=== PATIENT | female | born 1975 | race Caucasian/White ===

== ENCOUNTER 2017-03-14 23:50 | Inpatient (IN) | payer MEDICAID ==
[~2017-03-14] VITALS: Ht 142.2 cm; Wt 95.3 kg
[~2017-03-14 23:50] MED LIST: METH250T11 PO; PREN1CAP6 PO
[2017-03-14 23:58] VITALS: BP 156/59
[2017-03-15] MEDS ORDERED: NACL 0.9% 500 ML IV ONE (00:04)
[2017-03-15] MEDS ORDERED: KETOROLAC 30 MG/ML VIAL IVP ONE (00:05)
[2017-03-15] MEDS ORDERED: ONDANSETRON 4 MG/2 ML VIAL IVP ONE (00:05)
[2017-03-15 00:43] LABS: BASOPHILS # (AUTO) 0.1 K/uL (0.00-0.22); EOSINOPHILS # (AUTO) 0.2 K/uL (0-0.4); MONOCYTES # (AUTO) 0.3 K/uL (0.8-1.0)
[2017-03-15 01:04] LABS: BASOPHILS % (AUTO) 0.8 % (0.0-2.0); EOSINOPHILS % (AUTO) 3.1 % (0.0-4.0); LYMPHOCYTES # (AUTO) 1.6 K/uL (2.5-16.5); LYMPHOCYTES % (AUTO) 24.2 % (20.5-51.1); MEAN CORPUSCULAR HEMOGLOBIN 18 pg (27-31); MEAN CORPUSCULAR HGB CONC 30 g/dL (33-37); MEAN CORPUSCULAR VOLUME 60 fL (80-94); MONOCYTES % (AUTO) 4.6 % (1.7-9.3); NEUTROPHILS # (AUTO) 4.2 K/uL (1.8-7.7); NEUTROPHILS % (AUTO) 67.3 % (42.2-75.2); PLATELET COUNT (AUTO) 257 K/uL (140-450); RED BLOOD CELL COUNT(AUTO) 3.98 MIL/uL (4.20-5.40); RED CELL DISTRIBUTION WIDTH 20.5 % (11.6-13.7); WHITE BLOOD COUNT (AUTO) 6.4 K/uL (4.8-10.8)
--- NOTE | 2017-03-15 01:07 | NUR ---
PATIENT TAKEN TO BED 5 AT THIS TIME.
--- NOTE | 2017-03-15 01:13 | NUR ---
41 Y/O F W/C/O RT UPPER QUADRANT PAIN, RADIATING TO HER BACK, WITH VOMITING FOR 2 DAYS.
--- NOTE | 2017-03-15 01:15 | NUR ---
PT TRASFERED TO BED 5. NO S/S OF DISTRESS NOTED AT THE MOMENT. CURRENTLY RECEIVING IV FLUIDS.
[2017-03-15 01:17] LABS: ALBUMIN 3.7 g/dL (3.4-5.0); ANION GAP 13.4 (8-16); CALCIUM 8.5 mg/dL (8.5-10.1); CARBON DIOXIDE 25.2 mmol/L (21-32); CREATININE 0.5 mg/dL (0.6-1.3); POTASSIUM 3.6 mmol/L (3.5-5.1); TOTAL BILIRUBIN 1.5 mg/dL (0.0-1.0); TOTAL PROTEIN, SERUM 7.7 g/dL (6.4-8.2)
[2017-03-15 01:21] LABS: HEMATOCRIT 23.8 % (36-48)
[2017-03-15 01:22] LABS: ANISOCYTOSIS 1+; HYPOCHROMASIA 1+
--- NOTE | 2017-03-15 02:18 | NUR ---
DR. TARANGO AT BEDSIDE
[2017-03-15] MEDS ORDERED: NACL 0.9% 1,000 ML IV SCH (02:22)
[2017-03-15] MEDS ORDERED: MORPHINE SULFATE 2 MG/ML SYR IVP PRN (02:25)
[2017-03-15] MEDS ORDERED: DOCUSATE SODIUM 100 MG GELCAP PO PRN (02:25)
[2017-03-15] MEDS ORDERED: ACETAMINOPHEN 325 MG TAB PO PRN (02:25)
[2017-03-15] MEDS ORDERED: ONDANSETRON 4 MG/2 ML VIAL IM/IVP PRN (02:25)
[2017-03-15 02:50] LABS: PARTIAL THROMBOPLASTIN TIME 24.5 secs (22-35.6); PROTHROMBIN TIME 10.5 secs (10.8-13.4)
--- NOTE | 2017-03-15 02:50 | NUR ---
Patient will be admitted to care of DR SCOTT. Admited to TELEMETRY. Will go to room 120 A. Belongings list completed. Report to AMAYA UMANZOR.
[2017-03-15 02:57] LABS: APPEARANCE,URINE CLEAR (CLEAR); BILIRUBIN,URINE 2+ (NEGATIVE); BLOOD, URINE NEGATIVE (NEGATIVE); COLOR,URINE YELLOW (YELLOW); LEUKOCYTE ESTERASE ,URINE NEGATIVE (NEGATIVE); NITRITE, URINE NEGATIVE (NEGATIVE); PROTEIN,URINE NEGATIVE (NEGATIVE); UGLUCOSE NEGATIVE (NEGATIVE)
[2017-03-15 03:00] LABS: CHOL/HDL RATIO 10.5 (1-4.5); FREE T4 (FREE THYROXINE) 0.96 ng/dL (0.76-1.46); MAGNESIUM 1.9 mg/dL (1.8-2.4); PHOSPHORUS 3.5 mg/dL (2.5-4.9); THYROID STIMULATING HORMONE 1.22 uIU/mL (0.34-3.74)
--- NOTE | 2017-03-15 03:00 | NUR ---
PT TRASFERED TO FLOOR VIA GURNEY, OPTOELECTRONICS ENGINEER IN BED. ACCOMPANIED BY RN, EMT AND DAUGHTER. NO S/S OF DITRESS NOTED DURING TRANSFER.
[2017-03-15] MEDS ORDERED: HYDROmorphone 1 MG/ML AMP IVP PRN ×2 (03:05→09:00)
[2017-03-15] MEDS ORDERED: KETOROLAC 15 MG/ML VIAL IVP PRN (03:05)
--- NOTE | 2017-03-15 03:30 | NUR ---
RECEIVED FROM ER PER NICK AWAKE AND ALERT. WALKED FROM DOOR OF ROOM TO BED. ABLE TO AMBULATE. ROM X 4. CLEAR SPEECH LATVIAN SPEAKING. DX. OF CHOLECYSTITIS AND SEVERE ANEMIA. HGB 7 AND HCT 23.8- TELEMETRY MONITORING ON THE FLOOR. CARE PLANS DISCUSSED WITH HER AND CALL LIGHT USE EXPLAINED. RAPID RESPONSE EXPLAINED. WITH BILATERAL SEQUENTIALS EXPLAINED . EXPLAINED NEEDS OF IT. SKIN INTACT. OBESE FEMALE. IVF SITE LAC#20. AFEBRILE.
[2017-03-15 04:00] VITALS: BP 136/63
--- NOTE | 2017-03-15 04:10 | NUR ---
[facility] # [id number] GLASS BEAD MAKER/RAMSES USED TO TALK WITH PT.
[2017-03-15 04:12] LABS: BACTERIA,URINE FEW /HPF (None Seen); ICTOTEST NEGATIVE (NEGATIVE); RBC,URINE 0-5 (RARE) /HPF (0-5); WBC,URINE 0-5 (RARE) /HPF (0-5)
[2017-03-15 04:26] LABS: AMPHETAMINE, URINE NEG. ng/ml (NEG <=1000); BARBITURATE, URINE NEG. ng/ml (NEG <=200); BENZODIAZEPINE, URINE NEG. ng/mL (NEG <=200); CANNABINOID, URINE NEG. ng/mL (NEG <=50); COCAINE, URINE NEG. ng/mL (NEG <=300); OPIATE, URINE NEG. ng/mL (NEG <=2000); PHENCYCLIDINE SCREEN,URINE NEG. ng/mL (NEG <=25)
[2017-03-15] MEDS ORDERED: FERRIC GLUCONATE 62.5 MG/5 ML AMP IV ONE (04:44)
[2017-03-15] MEDS ORDERED: FERRIC GLUCONATE 125 MG in NACL 0.9% 100 ML IV SCH (05:00)
--- NOTE | 2017-03-15 05:01 | NUR ---
FERLICIT 125 MG IVP INFUSING AT THIS TIME ORDERED. ADVISED TO CALL CAREGIVER/NURSE IF SHE FEELS LIKE SHE IS HAVING AN ALLERGY TO IT. "OK" DAUGHTER AT BEDSIDE.
--- NOTE | 2017-03-15 07:00 | NUR ---
MD MARTINEZ /SURGEON CALLED AND WITH ORDERS TO GET CONSENT FOR PROCEDURE. PT. SIGNED AND EXPLAINED TO DAUGHTER AT BEDSIDE WHO SPEAKS AND UNDERSTANDS YORUBA WELL RE: SURGERY . NPO SINCE SHE CAME IN FROM ER AND IVF SITE TO LEFT AC#20 INTACT AND NO INFILTRATION.
--- NOTE | 2017-03-15 07:05 | NUR ---
RECEIVED REPORT FROM NIGHT NURSE, PT IS AAOX4 MONGOLIAN SPEAKING, ON ROOM AIR, IV TO LEFT AC 20G INFUSING WELL, SKIN INTACT, INITIAL ASSESSMENT COMPLETED, REVIEWED PLAN OF CARE WITH P, PT VERBALIZED UNDERSTANDING, ALL SAFETY PRECAUTIONS MET, DAUGHTER AT BEDSIDE, WILL CONTINUE TO MONITOR.
--- NOTE | 2017-03-15 07:45 | NUR ---
PT LEFT UNIT TO OR IN STABLE CONDITIONS.
[2017-03-15 08:00] VITALS: BP 136/65
[2017-03-15] MEDS ORDERED: GLYCOPYRROLATE 0.2 MG/ML VIAL ONE (08:14)
[2017-03-15] MEDS ORDERED: DESFLURANE 240 ML BTL INH ONE (08:14)
[2017-03-15] MEDS ORDERED: PROPOFOL 200 MG/20 ML VIAL IV ONE (08:14)
[2017-03-15] MEDS ORDERED: DEXAMETHASONE 4 MG/ML VIAL ONE (08:14)
[2017-03-15] MEDS ORDERED: PHENYLEPHRINE 10 MG/ML VIAL ONE (08:14)
[2017-03-15] MEDS ORDERED: ROCURONIUM 50 MG/5 ML VIAL IV ONE (08:14)
[2017-03-15] MEDS ORDERED: ONDANSETRON 4 MG/2 ML VIAL ONE (08:14)
[2017-03-15] MEDS ORDERED: BUPIVACAINE-MPF/EPI 0.25% 10 ML VIAL INJ SCH (08:20)
[2017-03-15] MEDS ORDERED: HYDROmorphone PFS 2 MG/ML SYR ONE (08:25)
[2017-03-15] MEDS ORDERED: fentaNYL 0.05 MG/ML VIAL ONE (08:25)
[2017-03-15] MEDS: ATORVASTATIN 20 MG TAB PO SCH (09:00)
[2017-03-15] MEDS ORDERED: METHYLDOPA 250 MG TAB PO SCH (09:00)
[2017-03-15] MEDS ORDERED: PRENATAL VITAMINS PO SCH (09:00)
[2017-03-15] MEDS ORDERED: ONDANSETRON 4 MG/2 ML VIAL IVP PRN (09:00)
[2017-03-15] MEDS: LISINOPRIL 10 MG TAB PO SCH (09:00)
--- NOTE | 2017-03-15 09:05 | NUR ---
PATIENT HAS BEEN SCREENED AND CATEGORIZED HIGH NUTRITION RISK. PATIENT WILL BE SEEN WITHIN 1-2 DAYS OF ADMISSION. 03/15/17-03/16/[address]
--- NOTE | 2017-03-15 10:15 | NUR ---
PATIENT OUT OF ROOM REMAINS IN SURGERY MACHINE GUN MECHANIC TO ATTEMPT INCENTIVE SPIROMETRY THERAPY AND EKG AT A LATER TIME
[2017-03-15] MEDS ORDERED: SIMETHICONE 40 MG/0.6 ML PO PRN ×2 (10:20→10:40)
[2017-03-15] MEDS: DEXT 5% / NACL 0.45% 1,000 ML IV SCH ×3 (10:50→23:26)
--- NOTE | 2017-03-15 10:50 | NUR ---
PT RETURNED TO UNIT FROM OR, VS 97.6, BP 111/58, HR 65, PULSE OX 100 ON ROOM AIR. 3 ABDOMINAL INCISIONS SYMONE, ALL NEEDS MET, WILL CONTINUE TO MONITOR.
[2017-03-15 12:00] VITALS: BP 109/62
--- NOTE | 2017-03-15 12:05 | NUR ---
03/15/17 RD INITIAL ASSESSMENT COMPLETED PLEASE REFER TO NUTRITION ASSESSMENT UNDER CARE ACTIVITY FOR ESTIMATED NUTRITIONAL NEEDS. 1. WHEN MEDICALLY FEASIBLE, INITIATE PO DIET - TO START ON CLEAR LIQUID DIET AND ADVANCE TOLERATED TO REGULAR DIET 2. RD TO FOLLOW-UP 2-3 DAYS; HIGH RISK ALEX BAHENA, EVA
--- NOTE | 2017-03-15 12:15 | NUR ---
AWAKE AND ALERT NO SOB NOTED PATIENT WITH LUNCH TRAY AT THIS TIME ADMINISTRATIVE ANALYST TO ATTEMPT INCENTIVE SPIROMETRY THERAPY AT A LATER TIME FAMILY AT BEDSIDE AIDING PATIENT WITH MEAL
[2017-03-15] MEDS: HYDROcodone/APAP 7.5/325 MG 1 TAB PO PRN ×3 (12:39→23:39)
--- NOTE | 2017-03-15 12:40 | NUR ---
DUE MEDICATION GIVEN, PT TOLERATED WELL, PT C/O PAIN 5/10 MEDICATED PER MD ORDERS, PT CURRENTLY EATING LUNCH NO S/S N/V. FAMILY AT BED SIDE WILL CONTINUE TO MONITOR.
--- NOTE | 2017-03-15 14:35 | NUR ---
ASSISTED PT TO RESTROOM. PT URINATED. ASSISTED PT TO WALK AROUND UNIT, PT TOLERATED WELL. BACK TO BED.
--- NOTE | 2017-03-15 15:20 | NUR ---
AWAKE AND ALERT RESPONSIVE TO FINANCE ADMIN VERBAL COMMANDS EDUCATION PROVIDED TO PATIENT WITH ACKNOWLEDGEMENT ON THE INCENTIVE SPIROMETRY (IS) TOLERATED PROCEDURE WELL WITH INCIDENT ENCOURAGED TO USE EVERY TWO HOURS WHILE AWAKE
[2017-03-15 16:00] VITALS: BP 116/52
[2017-03-15] MEDS: SIMETHICONE 80 MG TAB.CHEW PO SCH (16:38)
[2017-03-15] MEDS: ASCORBIC ACID 500 MG TAB PO SCH (16:38)
[2017-03-15] MEDS: FERROUS GLUCONATE 324 MG TAB PO SCH (16:38)
--- NOTE | 2017-03-15 16:38 | NUR ---
DUE MEDICATION GIVEN, PT TOLERATED WELL. FAMILY AT BEDSIDE. WILL CONTINUE TO MONITOR.
--- NOTE | 2017-03-15 17:06 | NUR ---
DUE MEDICATION GIVEN, PT C/O 12/28 ABD PAIN MEDICATED PER MD ORDERS. WILL CONTINUE TO MONITOR.
--- NOTE | 2017-03-15 18:53 | NUR ---
PT CURRENTLY WALKING. NO S/S OF DISTRESS NOTED.
--- NOTE | 2017-03-15 19:30 | NUR ---
RECEIVED REPORT FROM DAY RN AT BEDSIDE, PATIENT IS AAOX4 ON ROOM AIR, NO SOB OR SIGN OF DISTRESS, IV TO LAC PATENT AND INTACT, PT DENIES PAIN AT THIS TIME, PT C/O SWELLING IN THE ABDOMEN, UPON ASSESSMENT, SWELLING NORMAL AROUND INCISION SITE, PT ALSO STATED SHE FEELS LIKE SHE HAS GAS. PT HAS BEEN BURPING. EDUCATED PT ON IMPORTANCE OF AMBULATING TO HELP MOVE THE BOWELS. PT VERBALIZED UNDERSTANDING. NOTED X3 ABDOMINAL INCISIONS WITH DERMABOND, SITES FREE OF REDNESS OR DRAINAGE. DISCUSSED PLAN OF CARE WITH PATIENT, PT VERBALIZED UNDERSTANDING, CALL LIGHT WITHIN REACH. WILL CONTINUE TO MONITOR.
--- NOTE | 2017-03-15 19:35 | NUR ---
ENDORSED PLAN OF CARE TO NIGHT NURSE, PT IN STABLE CONDITION.
[2017-03-15 20:00] VITALS: BP 113/62
--- NOTE | 2017-03-15 21:41 | NUR ---
PT RESTING IN BED, NO SOB OR SIGN OF DISTRESS, CALL LIGHT WITHIN REACH. WILL CONTINUE TO MONITOR.
--- NOTE | 2017-03-15 22:20 | NUR ---
PT AMBULATING BACK AND FORTH DOWN HALLWAY, IN STABLE CONDITION, WILL CONTINUE TO MONITOR.
[2017-03-16] VITALS: BP 124/54
--- NOTE | 2017-03-16 00:05 | NUR ---
VITAL SIGNS STABLE, NO SOB OR SIGN OF DISTRESS, CALL LIGHT WITHIN REACH. WILL CONTINUE TO MONITOR.
--- NOTE | 2017-03-16 02:30 | NUR ---
PT RESTING IN BED, NO SOB OR SIGN OF DISTRESS, CALL LIGHT WITHIN REACH. WILL CONTINUE TO MONITOR
--- NOTE | 2017-03-16 04:30 | NUR ---
PT SLEEPING, NO SOB OR SIGN OF DISTRESS, CALL LIGHT WITHIN REACH. WILL CONTINUE TO MONITOR.
[2017-03-16 06:27] LABS: HEMATOCRIT 21.2 % (36-48)
[2017-03-16 06:32] LABS: BASOPHILS # (AUTO) 0.1 K/uL (0.00-0.22); BASOPHILS % (AUTO) 1.1 % (0.0-2.0); EOSINOPHILS # (AUTO) 0.2 K/uL (0-0.4); EOSINOPHILS % (AUTO) 1.8 % (0.0-4.0); LYMPHOCYTES # (AUTO) 2.2 K/uL (2.5-16.5); MEAN CORPUSCULAR HEMOGLOBIN 17 pg (27-31); MEAN CORPUSCULAR HGB CONC 29 g/dL (33-37); MEAN CORPUSCULAR VOLUME 61 fL (80-94); MONOCYTES # (AUTO) 0.7 K/uL (0.8-1.0); MONOCYTES % (AUTO) 8.8 % (1.7-9.3); NEUTROPHILS # (AUTO) 5.3 K/uL (1.8-7.7); NEUTROPHILS % (AUTO) 62.3 % (42.2-75.2); PLATELET COUNT (AUTO) 249 K/uL (140-450); RED CELL DISTRIBUTION WIDTH 20.5 % (11.6-13.7)
[2017-03-16 06:36] LABS: ANION GAP 10.2 (8-16); CALCIUM 7.8 mg/dL (8.5-10.1); CARBON DIOXIDE 26.1 mmol/L (21-32); CREATININE 0.6 mg/dL (0.6-1.3); POTASSIUM 3.3 mmol/L (3.5-5.1); TOTAL BILIRUBIN 1.4 mg/dL (0.0-1.0); TOTAL PROTEIN, SERUM 6.4 g/dL (6.4-8.2)
[2017-03-16 06:37] LABS: HEMOGLOBIN 6.1 g/dL (12.0-16.0)
[2017-03-16 06:41] LABS: ANISOCYTOSIS 1+; HYPOCHROMASIA 1+; POIKILOCYTOSIS 1+
[2017-03-16 06:42] LABS: OVALOCYTES 1+; STOMATOCYTES 1+; WHITE BLOOD COUNT (AUTO) 8.5 K/uL (4.8-10.8)
--- NOTE | 2017-03-16 06:49 | NUR ---
RECEIVED CRITICAL LAB OF HGB 6.1, HCT 21.1, REPORTED TO DR JORDAN.
--- NOTE | 2017-03-16 07:30 | NUR ---
ENDORSED PATIENT TO DAY RN AT BEDSIDE, PATIENT IN STABLE CONDITION
--- NOTE | 2017-03-16 07:31 | NUR ---
RECEIVED CARE FROM ALLA CONDE AT BEDSIDE. PT IS A&OX4 LITHUANIAN-SPEAKING. NIECE AT BEDSIDE. PT HAS IV ON L AC 20 G RUNNING D51/2NS@125ML/HR. PT C/O PAIN WILL MEDICATE. PT STATED SHE IS BURPING WHEN WALKING. NO DISTRESS NOTED. CALL LIGHT WITHIN REACH. WILL CONTINUE TO MONITOR.
[2017-03-16 08:00] VITALS: BP 138/66
[2017-03-16] MEDS: ATORVASTATIN 20 MG TAB PO SCH (08:38)
[2017-03-16] MEDS: LISINOPRIL 10 MG TAB PO SCH (08:39)
[2017-03-16] MEDS: HYDROcodone/APAP 7.5/325 MG 1 TAB PO PRN ×2 (08:39→21:21)
[2017-03-16] MEDS: SIMETHICONE 80 MG TAB.CHEW PO SCH (08:40)
[2017-03-16] MEDS: ASCORBIC ACID 500 MG TAB PO SCH ×3 (08:40→16:59)
[2017-03-16] MEDS ORDERED: SIMETHICONE 80 MG TAB.CHEW PO PRN (08:40)
--- NOTE | 2017-03-16 09:00 | NUR ---
PT TOOK A WALK IN HALLWAY. TOLERATED WELL. WENT BACK TO ROOM. CALL LIGHT WITHIN REACH. WILL CONTINUE TO MONITOR.
[2017-03-16] MEDS: FERROUS GLUCONATE 324 MG TAB PO SCH ×3 (09:24→16:59)
[2017-03-16 10:28] LABS: HEMOGLOBIN A1C 4.7 % (4.8-5.6); T4 (THYROXINE) 9.1 ug/dL (4.5 - 12.0)
--- NOTE | 2017-03-16 11:00 | NUR ---
SPOKE TO DR. ANTONIO REGARDING POTASSIUM LEVEL 3.3. WILL PUT IN ORDER.
--- NOTE | 2017-03-16 13:00 | NUR ---
PT AMBULATED IN HALLWAY. TOLERATED WELL. STILL ONLY BURPING. CALL LIGHT WITHIN REACH. WILL CONTINUE TO MONITOR.
--- NOTE | 2017-03-16 15:30 | NUR ---
PT IS RESTING IN BED. NO DISTRESS NOTED. CALL LIGHT WITHIN REACH. WILL CONTINUE TO MONITOR.
[2017-03-16 16:00] VITALS: BP 111/67
[2017-03-16] MEDS ORDERED: NACL 0.9% 1,000 ML IV SCH (16:35)
--- NOTE | 2017-03-16 17:00 | NUR ---
SPOKE TO DR. ANTONIO REGARDING PT'S BLOATING. DR YUEN PUT IN ORDER.
[2017-03-16] MEDS ORDERED: POTASSIUM CHLORIDE 10 MEQ TABER PO SCH (17:34)
[2017-03-16] MEDS ORDERED: BISACODYL 10 MG SUPP RC SCH (17:55)
[2017-03-16 18:51] LABS: FERRITIN 5 ng/mL (15 - 150)
--- NOTE | 2017-03-16 19:10 | NUR ---
ENDORSED CARE TO RAQUEL RN AT BEDSIDE. PT IN STABLE CONDITION.
--- NOTE | 2017-03-16 19:15 | NUR ---
RECEIVED PT IN STABLE CONDITION FROM AM NURSE. AWAKE,ALERT AND ORIENTED X4. SWEDISH SPEAKING. MED SURG PT. S/P LAP JAZMIN WITH X3 INCISIONS WITH GLUE DRESSING. NO C/O ANY PAIN AT THIS TIME. HAS IVF INFUSING WELL ON THE LT AC . WILL CONTINUE TO MONITOR.
--- NOTE | 2017-03-16 22:00 | NUR ---
AWAKE, ENCOURAGED TOUSE INCENTIVE SPIROMETER . DEMONSTRATED WELL.
[2017-03-17] VITALS: BP 128/58
--- NOTE | 2017-03-17 01:00 | NUR ---
MADE ROUNDS. SLEEPING AT THIS TIME. NO S/S FO ANY DISCOMFORT NOTED.
--- NOTE | 2017-03-17 04:30 | NUR ---
MADE ROUNDS. PT ASLEEP. NO S//S OF ANY DISCOMFORT NOR PAIN NOTED.
--- NOTE | 2017-03-17 05:04 | NUR ---
BLOOD WAS JUST DRAWN THIS AM. THEN PT C/O POST OP PAIN. WILL MEDICATE ORDERED.
[2017-03-17] MEDS: HYDROcodone/APAP 7.5/325 MG 1 TAB PO PRN ×2 (05:06→08:56)
[2017-03-17 06:20] LABS: ANION GAP 12.2 (8-16); CALCIUM 8.2 mg/dL (8.5-10.1); CARBON DIOXIDE 25.1 mmol/L (21-32); CREATININE 0.5 mg/dL (0.6-1.3); POTASSIUM 3.3 mmol/L (3.5-5.1)
[2017-03-17 06:39] LABS: BASOPHILS # (AUTO) 0.1 K/uL (0.00-0.22); MEAN CORPUSCULAR HEMOGLOBIN 18 pg (27-31); MEAN CORPUSCULAR HGB CONC 29 g/dL (33-37); MEAN CORPUSCULAR VOLUME 61 fL (80-94); RED CELL DISTRIBUTION WIDTH 20.5 % (11.6-13.7)
[2017-03-17 06:44] LABS: BASOPHILS % (AUTO) 0.8 % (0.0-2.0); EOSINOPHILS # (AUTO) 0.2 K/uL (0-0.4); HEMATOCRIT 23.5 % (36-48); LYMPHOCYTES # (AUTO) 1.8 K/uL (2.5-16.5); LYMPHOCYTES % (AUTO) 19.9 % (20.5-51.1); MONOCYTES # (AUTO) 0.6 K/uL (0.8-1.0); MONOCYTES % (AUTO) 6.7 % (1.7-9.3); NEUTROPHILS # (AUTO) 6.3 K/uL (1.8-7.7); NEUTROPHILS % (AUTO) 70.6 % (42.2-75.2); PLATELET COUNT (AUTO) 259 K/uL (140-450); RED BLOOD CELL COUNT(AUTO) 3.84 MIL/uL (4.20-5.40)
[2017-03-17 06:50] LABS: HEMOGLOBIN 6.8 g/dL (12.0-16.0)
--- NOTE | 2017-03-17 07:22 | NUR ---
ENDORSED PT IN STABLE CONDITION TO AM NURSE.
--- NOTE | 2017-03-17 07:23 | NUR ---
RECEIVED REPORT FROM THE AUTOMOTIVE TECHNOLOGY INSTRUCTOR NURSE AT BEDSIDE FOR CONTINUITY OF CARE. PT IS AWAKE AND ORIENTED. SPEAKS DANISH WITH VERY LITTLE CITIZEN OF [place]. PT'S NIECE IS HERE AT BEDSIDE. PT IS S/P LAP JAZMIN X2 DAYS. PT IS AMBULATING WELL. AND PASSING GAS. SHE HAD A BM THIS MORNING. NOTED THE 4 INCISIONS ON ABDOMIN, SYMONE. NOTED THE IV ON L AC 20G NS AT 30ML INFUSING. PT V/S WITHIN NORMAL RANGE. PAIN AT 4/10. WOULD LIKE PAIN MEDS WHEN IT IS DUE. WILL CHECK AND BE BACK WITH MORNING MEDS.
[2017-03-17 07:24] LABS: ANISOCYTOSIS 1+; HYPOCHROMASIA 1+; POIKILOCYTOSIS 1+
[2017-03-17 07:25] LABS: OVALOCYTES 1+
[2017-03-17 08:00] VITALS: BP 124/59
[2017-03-17] MEDS: ASCORBIC ACID 500 MG TAB PO SCH ×2 (08:20→12:24)
[2017-03-17] MEDS: LISINOPRIL 10 MG TAB PO SCH (08:20)
[2017-03-17] MEDS: ATORVASTATIN 20 MG TAB PO SCH (08:20)
[2017-03-17] MEDS: FERROUS GLUCONATE 324 MG TAB PO SCH ×2 (08:20→12:24)
--- NOTE | 2017-03-17 08:25 | NUR ---
ADMINISTERED MORNING MEDS. PT TOLERATED WELL. WILL CONTINUE TO MONITOR PT.
[2017-03-17] MEDS ORDERED: POTASSIUM CHLORIDE 10 MEQ TABER PO SCH (09:15)
[2017-03-17] MEDS ORDERED: ACET-1182 PO (11:55)
[2017-03-17] MEDS ORDERED: SIME80CT27 PO (11:55)
[2017-03-17] MEDS ORDERED: ATOR20TA40 PO (11:55)
--- NOTE | 2017-03-17 12:15 | NUR ---
DR. MARTINEZ HERE TO SEE PT. PER , PT IS DOING WELL. HE WILL SEE HER IN 2 WEEKS IN HIS OFFICE. PT TO CALL AND MAKE APPT.
--- NOTE | 2017-03-17 12:25 | NUR ---
ADMINISTERED NOON MEDS. PT TOLERATED WELL. CARMEN AT [facility]. WILL CONTINUE TO MONITOR PT. AWAITING 'S D/C ORDER.
--- NOTE | 2017-03-17 14:30 | NUR ---
WENT OVER DISCHARGE PAPERWORK AND EDUCATION WITH PT AND NIECE. ANSWERED ALL QUESTIONS. PT AND FAMILY VERBALIZED UNDERSTANDING. PT IS AWARE TO DRUG ABUSE SOCIAL WORKER RX, GO TO F/U APPTS. REMOVED IV, CANNULA INTACT. NO BLEEDING NOTED. PT TOLERATED WELL. REMOVED ALL ARM BANDS. TOOK PIC OF ABDOMINAL INCISIONS. PLACED IN CHART. PT TO GET DRESSED AND GATHER HER PERSONAL BELONGINGS AND WILL LET ME KNOW WHEN SHE IS READY TO GO. WILL HAVE WHEELCHAIR AVAILABLE.
--- NOTE | 2017-03-17 14:45 | NUR ---
PT WHEELED OUT IN A WHEELCHAIR BY [place]. NIECE OUT GETTING THE CAR. PT IS IN STABLE CONDITION.
[2017-03-17 20:57] LABS: FOLIC ACID > 20.00 ng/mL (>3.0); TRANSFERRIN 325 mg/dL (200-370)
== END 2017-03-17 14:45 | disposition home or self-care (01) | DRG 263 ==
LOC: MED 23:50 → MTU 03-15 02:20
PROVIDERS: ADMIT Family Medicine; ATTEND Family Medicine
PROC: 0FT44ZZ Resection of Gallbladder, Percutaneous Endoscopic Approach (ICD-10-PCS; principal; 2017-03-15 08:00)
DX: K80.00 Calculus of gallbladder with acute cholecystitis without obstruction (principal); K76.0 Fatty (change of) liver, not elsewhere classified; Z68.42 Body mass index [BMI] 45.0-49.9, adult; I10 Essential (primary) hypertension; E87.5 Hyperkalemia; E78.5 Hyperlipidemia, unspecified; D50.9 Iron deficiency anemia, unspecified; R74.0 Nonspecific elevation of levels of transaminase and lactic acid dehydrogenase [LDH]; E66.01 Morbid (severe) obesity due to excess calories; Z82.5 Family history of asthma and other chronic lower respiratory diseases; Z80.3 Family history of malignant neoplasm of breast; Z82.49 Family history of ischemic heart disease and other diseases of the circulatory system; Z82.3 Family history of stroke
CPT/HCPCS: 36415; 71010; 76705; 80048; 80053; 80305; 81001; 81025; 82607; 82728; 82746; 83036; 83540; 83690; 83735; 83880; 84100; 84436; 84439; 84443; 84479; 85025; 85045; 85610; 85730; 86886; 86900; 86901; 87081; 93005; 96361; 96374; 96375; 99285; C1887; J0694; J1100; J1170; J1885; J2370; J2405; J2704; J2916; J3010; J3490; J7030; J7060; Q0092

== ENCOUNTER 2018-11-16 00:45 | Inpatient (IN) | payer MEDICAID ==
[~2018-11-16] VITALS: Ht 142.2 cm; Wt 101.2 kg
[~2018-11-16 00:45] MED LIST changes: +ACET-1182 PO; +ATOR20TA40 PO; -METH250T11 PO; -PREN1CAP6 PO; +SIME80CT27 PO
--- NOTE | 2018-11-16 00:48 | NUR ---
PT TAKEN TO BED 4
--- NOTE | 2018-11-16 00:50 | NUR ---
BIB DAUGHTER WITH C/O SEVERE ABD PAIN X 1 YEAR, WORSE TODAY. HAS BEEN SEEN HERE ON MULTIPLE OCCASSIONS FOR THE SAME THING AND IS IN THE PROCESS OF TRYING TO GET SEEN BY A GI SPECIALIST. STATES THE PAIN IS ALL OVER HER ABD AND RADIATES TO HER BACK. DENIES VOMITING OR DIARRHEA. DENIES FEVER, COUGH, SOB, OR CP AT THIS TIME. DAUGHTER AT BEDSIDE. BED IN LOW LOCK POSITION.
[2018-11-16 00:51] VITALS: BP 117/70
--- NOTE | 2018-11-16 00:52 | NUR ---
Dr. Hammond evaluating patient at bedside.
[2018-11-16] MEDS ORDERED: NACL 0.9% 500 ML IV ONE (00:59)
[2018-11-16] MEDS ORDERED: KETOROLAC 30 MG/ML VIAL IVP ONE (01:00)
[2018-11-16] MEDS ORDERED: ONDANSETRON 4 MG/2 ML VIAL IVP ONE (01:00)
--- NOTE | 2018-11-16 01:15 | NUR ---
STRAIGHT CATH USED TO COLLECT URINE SAMPLE. STERILE TECHNIQUE USED. SAME COLLECTED WITHOUT INCIDENT. PATIENT TOLERATED WELL.
--- NOTE | 2018-11-16 01:15 | NUR ---
Note undone in EDM - 11/16/18 at 0131 by BASHIR BIB DAUGHTER WITH C/O SEVERE ABD PAIN X 1 YEAR, WORSE TODAY. HAS BEEN SEEN HERE ON MULTIPLE OCCASSIONS FOR THE SAME THING AND IS IN THE PROCESS OF TRYING TO GET SEEN BY A GI SPECIALIST. STATES THE PAIN IS ALL OVER HER ABD AND RADIATES TO HER BACK. DENIES VOMITING OR DIARRHEA. DENIES FEVER, COUGH, SOB, OR CP AT THIS TIME. DAUGHTER AT BEDSIDE. BED IN LOW LOCK POSITION.
[2018-11-16 01:19] LABS: APPEARANCE,URINE CLEAR (CLEAR); BILIRUBIN,URINE NEGATIVE (NEGATIVE); BLOOD, URINE NEGATIVE (NEGATIVE); COLOR,URINE YELLOW (YELLOW); LEUKOCYTE ESTERASE ,URINE NEGATIVE (NEGATIVE); NITRITE, URINE NEGATIVE (NEGATIVE); PH,URINE 5.5 (5.0-9.0); UGLUCOSE NEGATIVE (NEGATIVE)
[2018-11-16 01:20] LABS: BASOPHILS # (AUTO) 0.1 K/uL (0.00-0.22); EOSINOPHILS # (AUTO) 0.1 K/uL (0-0.4); HEMATOCRIT 21.6 % (36-48); NEUTROPHILS # (AUTO) 5.9 K/uL (1.8-7.7); NEUTROPHILS % (AUTO) 71.4 % (42.2-75.2); RED BLOOD CELL COUNT(AUTO) 3.61 MIL/uL (4.20-5.40)
[2018-11-16 01:25] LABS: BASOPHILS % (AUTO) 0.8 % (0.0-2.0); EOSINOPHILS % (AUTO) 1.1 % (0.0-4.0); LYMPHOCYTES # (AUTO) 1.8 K/uL (2.5-16.5); LYMPHOCYTES % (AUTO) 22.1 % (20.5-51.1); MEAN CORPUSCULAR HEMOGLOBIN 17 pg (27-31); MEAN CORPUSCULAR HGB CONC 28 g/dL (33-37); MEAN CORPUSCULAR VOLUME 59.9 fL (80-94); MONOCYTES # (AUTO) 0.4 K/uL (0.8-1.0); MONOCYTES % (AUTO) 4.6 % (1.7-9.3); PLATELET COUNT (AUTO) 293 K/uL (140-450); RED CELL DISTRIBUTION WIDTH 21.8 % (11.6-13.7); WHITE BLOOD COUNT (AUTO) 8.3 K/uL (4.8-10.8)
[2018-11-16] MEDS ORDERED: KETOROLAC 30 MG/ML VIAL ONE (01:28)
[2018-11-16] MEDS ORDERED: ONDANSETRON 4 MG/2 ML VIAL ONE (01:28)
[2018-11-16 01:35] LABS: ALBUMIN 3.4 g/dL (3.4-5.0); ANION GAP 16.2 (8-16); CARBON DIOXIDE 23.1 mmol/L (21-32); CREATININE 0.6 mg/dL (0.6-1.3); POTASSIUM 3.3 mmol/L (3.5-5.1); TOTAL BILIRUBIN 0.4 mg/dL (0.0-1.0)
--- NOTE | 2018-11-16 03:10 | NUR ---
PT TAKEN TO CT
--- NOTE | 2018-11-16 03:17 | NUR ---
PT RETURN FROM CT
[2018-11-16] MEDS ORDERED: DOCUSATE SODIUM 100 MG GELCAP PO PRN (03:45)
[2018-11-16] MEDS ORDERED: ACETAMINOPHEN 325 MG TAB PO PRN (03:45)
[2018-11-16] MEDS ORDERED: MORPHINE SULFATE 2 MG/ML SYR IVP PRN (03:45)
[2018-11-16] MEDS ORDERED: ONDANSETRON 4 MG/2 ML VIAL IM/IVP PRN (03:45)
[2018-11-16] MEDS ORDERED: HYDROcodone/APAP 7.5/325 MG 1 TAB PO PRN (03:45)
[2018-11-16 04:05] LABS: BARBITURATE, URINE NEG. ng/ml (NEG <=200); BENZODIAZEPINE, URINE NEG. ng/mL (NEG <=200); CANNABINOID, URINE NEG. ng/mL (NEG <=50); COCAINE, URINE NEG. ng/mL (NEG <=300); OPIATE, URINE NEG. ng/mL (NEG <=2000); PHENCYCLIDINE SCREEN,URINE NEG. ng/mL (NEG <=25)
[2018-11-16 04:08] LABS: PROTHROMBIN TIME 10.1 secs (10.8-13.4)
[2018-11-16] MEDS ORDERED: IBUP-2218 PO (04:08)
[2018-11-16] MEDS ORDERED: ATEN50TA8 PO ×2 (04:08→04:21)
[2018-11-16] MEDS ORDERED: HYDR-5122 PO (04:08)
[2018-11-16] MEDS ORDERED: ONDA8TAB PO (04:08)
[2018-11-16] MEDS ORDERED: FERR325E14 PO ×2 (04:08→04:21)
[2018-11-16] MEDS ORDERED: FERR324T11 PO (04:10)
[2018-11-16] MEDS ORDERED: KETOROLAC 30 MG/ML VIAL IVP PRN (04:10)
--- NOTE | 2018-11-16 04:15 | NUR ---
ADMITTED PT FROM ER VIA WHEELCHAIR. AAOX4. PT DENIES PAIN AT THIS TIME. NO SOB NOTED. ON ROOM AIR. IV TO LEFT AC #20, PATENT AND INTACT. SKIN INTACT. PT AMBULATES WITHOUT ASSIST. PT ORIENTED TO ROOM. DISCUSSED PLAN OF CARE, PT VERBALIZED UNDERSTANDING. CALL LIGHT WITHIN REACH.
[2018-11-16 04:19] LABS: CHOL/HDL RATIO 8.9 (1-4.5); PHOSPHORUS 3.4 mg/dL (2.5-4.9); THYROID STIMULATING HORMONE 2.35 uIU/mL (0.34-3.74)
[2018-11-16 04:20] VITALS: BP 124/64
--- NOTE | 2018-11-16 04:20 | NUR ---
PATIENT ADMITTED TO THE CARE OF DR HALEY ON THE MED SURG UNIT IN ROOM 119-B. TRANSFERED IN WHEELCHAIR. REPORT GIVEN TO RN. PATIENT STABLE DURING TRANSFER.
[2018-11-16] MEDS: DEXT 5% /NACL 0.9% 1,000 ML IV SCH ×3 (04:48→20:50)
--- NOTE | 2018-11-16 05:25 | NUR ---
PT REFUSED SCD. PT IS AMBULATORY. PT'S LAB RESULTS STILL PENDING AT THIS TIME
[2018-11-16 05:55] LABS: HEMOGLOBIN 6.1 g/dL (12.0-16.0)
--- NOTE | 2018-11-16 06:36 | NUR ---
PT LYING IN BED, AWAKE. NO C/O PAIN OR SOB. PT HAS AN ORDER FOR BLOOD TRANSFUSION. BLOOD NOT READY YET.
--- NOTE | 2018-11-16 07:10 | NUR ---
ENDORSED PT TO DAY SHIFT NURSE. PT IN STABLE CONDITION.
--- NOTE | 2018-11-16 07:11 | NUR ---
GOT BEDSIDE REPORT FROM AMAYA WILSON. PATIENT ON MED SURGE AND STANDARD PRECAUTIONS IN PLACE. PATIENT AAOX4 AND ON ROOM AIR WITH NO DISTRESS NOTED. PATIENT SKIN INTACT. ABLE TO AMBULATE AND CONTINENT. IV ON L AC 20 G INFUSING D5 NS AT 100, IV ASYMPTOMATIC PATENT AND INTACT. BED IN LOW POSITION, CALL LIGHT WITHIN REACH SIDE RAILS X 2 UP. WILL CONTINUE TO MONITOR.
--- NOTE | 2018-11-16 07:55 | NUR ---
BLOOD TRANSFUSION STARTED. VITALS T 98.1, HR 63, RR 16, BP 133/54 AND 0/10 PAIN. NO COMPLAINTS AT THIS TIME
[2018-11-16 08:00] VITALS: BP 133/54
--- NOTE | 2018-11-16 08:29 | NUR ---
PATIENT HAS BEEN SCREENED AND CATEGORIZED HIGH NUTRITION RISK. PATIENT WILL BE SEEN WITHIN 1-2 DAYS OF ADMISSION. 11/16/18-11/17/[address]
[2018-11-16] MEDS: FERROUS SULFATE 325 MG TABEC PO SCH (08:36)
[2018-11-16] MEDS: ATENOLOL 50 MG TAB PO SCH (08:36)
[2018-11-16] MEDS ORDERED: SODIUM FERRIC GLUCONATE 125 MG in NACL 0.9% 100 ML IV SCH (09:00)
[2018-11-16] MEDS ORDERED: FERROUS GLUCONATE 324 MG TAB PO SCH (09:00)
--- NOTE | 2018-11-16 09:13 | NUR ---
HELD PO MEDS SINCE PATIENT IS NPO
--- NOTE | 2018-11-16 11:51 | NUR ---
ENDED BLOOD TRANSFUSION. VITALS STABLE, NO REACTION NOTED
--- NOTE | 2018-11-16 14:00 | NUR ---
PATIENT WATCHING TV, ON ROOM AIR, NO DISTRESS NOTED
--- NOTE | 2018-11-16 14:30 | NUR ---
11/16/18 RD INITIAL ASSESSMENT COMPLETED PLEASE REFER TO NUTRITION ASSESSMENT UNDER CARE ACTIVITY FOR ESTIMATED NUTRITIONAL NEEDS. 1. CONTINUE NPO MEDICALLY NECESSARY 2. WHEN PATIENT IS MEDICALLY STABLE CONSIDER ADVANCING TO CLEAR LIQUIDS WITH ENSURE CLEAR TID 3. RD PROVIDED NUTRITION EDUCATION FOR ANEMIA 4. RD TO FOLLOW-UP 2-3 DAYS, HIGH RISK RADHA WHITTAKER RD
[2018-11-16 15:28] LABS: BASOPHILS % (AUTO) 0.6 % (0.0-2.0); EOSINOPHILS % (AUTO) 0.3 % (0.0-4.0); HEMATOCRIT 24.4 % (36-48); LYMPHOCYTES # (AUTO) 1.4 K/uL (2.5-16.5); LYMPHOCYTES % (AUTO) 19.4 % (20.5-51.1); MEAN CORPUSCULAR HEMOGLOBIN 18 pg (27-31); MEAN CORPUSCULAR HGB CONC 29 g/dL (33-37); MEAN CORPUSCULAR VOLUME 62.7 fL (80-94); MONOCYTES # (AUTO) 0.4 K/uL (0.8-1.0); MONOCYTES % (AUTO) 5.6 % (1.7-9.3); NEUTROPHILS # (AUTO) 5.2 K/uL (1.8-7.7); NEUTROPHILS % (AUTO) 74.1 % (42.2-75.2); PLATELET COUNT (AUTO) 277 K/uL (140-450); RED CELL DISTRIBUTION WIDTH 24.4 % (11.6-13.7)
[2018-11-16 16:00] VITALS: BP 133/46
[2018-11-16 16:48] LABS: HEMOGLOBIN 7.1 g/dL (12.0-16.0)
--- NOTE | 2018-11-16 17:53 | NUR ---
NO COMPLAINTS AT THIS TIME, ON ROOM AIR, WITH NO DISTRESS
--- NOTE | 2018-11-16 19:22 | NUR ---
GAVE REPORT TO AMAYA WHELAN PATIENT ENDORSED IN STABLE CONDITION
--- NOTE | 2018-11-16 19:30 | NUR ---
RECEIVED PATIENT REPORT AT BEDSIDE. PATIENT AWAKE, ALERT AND ORIENTED. NO S/S OF DISTRESS. DENIES PAIN AT THIS TIME. BED LOWERED WITH CALL LIGHT WITHIN REACH. WILL CONTINUE TO MONITOR
--- NOTE | 2018-11-16 22:11 | NUR ---
PATIENT EVALUATED BY DR GONZALEZ. PER DR, PATIENT CAN HAVE CLEAR LIQUID DIET FOR NOW
[2018-11-17] VITALS: BP 125/56
--- NOTE | 2018-11-17 00:53 | NUR ---
PT ASLEEP IN BED. NO S/S OF DISTRESS NOTED
[2018-11-17 06:35] LABS: BASOPHILS % (AUTO) 0.8 % (0.0-2.0); EOSINOPHILS # (AUTO) 0.1 K/uL (0-0.4); EOSINOPHILS % (AUTO) 1.7 % (0.0-4.0); HEMATOCRIT 23.1 % (36-48); LYMPHOCYTES # (AUTO) 1.7 K/uL (2.5-16.5); LYMPHOCYTES % (AUTO) 27.6 % (20.5-51.1); MEAN CORPUSCULAR HEMOGLOBIN 18 pg (27-31); MEAN CORPUSCULAR HGB CONC 29 g/dL (33-37); MEAN CORPUSCULAR VOLUME 63.7 fL (80-94); MONOCYTES # (AUTO) 0.4 K/uL (0.8-1.0); MONOCYTES % (AUTO) 6.4 % (1.7-9.3); NEUTROPHILS # (AUTO) 3.9 K/uL (1.8-7.7); NEUTROPHILS % (AUTO) 63.5 % (42.2-75.2); PLATELET COUNT (AUTO) 252 K/uL (140-450); RED BLOOD CELL COUNT(AUTO) 3.62 MIL/uL (4.20-5.40); RED CELL DISTRIBUTION WIDTH 24.9 % (11.6-13.7); WHITE BLOOD COUNT (AUTO) 6.1 K/uL (4.8-10.8)
[2018-11-17 06:42] LABS: HEMOGLOBIN 6.7 g/dL (12.0-16.0)
[2018-11-17 06:53] LABS: PHOSPHORUS 3.9 mg/dL (2.5-4.9)
--- NOTE | 2018-11-17 07:36 | NUR ---
PT REPORT GIVEN AT BEDSIDE. PATIENT ENDORSED IN STABLE CONDITION
--- NOTE | 2018-11-17 07:38 | NUR ---
RECEIVED BEDSIDE REPORT FROM FISH PROCESSING SUPERVISOR RN. PT IN STABLE CONDITION. AOX4. DENIES PAIN. LUNGS CTA. HEART RHYTHM REGULAR. SKIN INTACT. AMBULATORY WITHOUT ASSIST. BED LOCKED & LOW, CALL LIGHT WITHIN REACH. ALL OTHER SAFETY PRECAUTIONS IN PLACE, WILL CONTINUE TO MONITOR.
[2018-11-17 07:46] LABS: ANION GAP 11.5 (8-16); CREATININE 0.5 mg/dL (0.6-1.3); POTASSIUM 3.5 mmol/L (3.5-5.1)
[2018-11-17 08:00] VITALS: BP 146/61
[2018-11-17 08:17] LABS: FOLIC ACID > 20.00 ng/mL (>3.0); TRANSFERRIN 310 mg/dL (200-370)
[2018-11-17] MEDS: ATENOLOL 50 MG TAB PO SCH (10:12)
[2018-11-17] MEDS: FERROUS SULFATE 325 MG TABEC PO SCH (10:12)
[2018-11-17] MEDS: ACETAMINOPHEN 325 MG TAB PO SCH ×2 (10:13→16:00)
[2018-11-17] MEDS: DEXT 5% /NACL 0.9% 1,000 ML IV SCH (11:00)
--- NOTE | 2018-11-17 11:10 | NUR ---
BLOOD TRANSFUSION STARTED AT 1055. NO REACTION IN FIRST 15 MINUTES. BP HAS DECREASED FROM PRE-TRANSFUSION. PATIENT IS ASYMPTOMATIC. NO DIZZINESS/LIGHTHEADEDNESS, SYNCOPE. PATIENT RECEIVED SCHEDULED ANTIHYPERTENSIVE MEDICATION EARLIER. WILL CONTINUE TO CLOSELY MONITOR.
--- NOTE | 2018-11-17 11:59 | NUR ---
VITALS STABLE. NO C/O PAIN. PATIENT SITTING UP IN BED, SPEAKING WITH FAMILY MEMBER AT BEDSIDE. WILL CONTINUE TO MONITOR.
[2018-11-17] MEDS: FUROSEMIDE 20 MG TAB PO SCH ×3 (12:00→16:09)
--- NOTE | 2018-11-17 15:56 | NUR ---
UNABLE TO PULL OUT LASIX FOR POST TRANSFUSION. NOTIFIED PHARMACIST. PER PHARMACIST, CALL THE MD. CALLED AND NOTIFIED DR. HASKINS- SHE WILL PLACE NEW ORDER.
[2018-11-17 16:00] VITALS: BP 133/46
[2018-11-17] MEDS ORDERED: FUROSEMIDE 20 MG TAB PO SCH (16:00)
[2018-11-17 16:05] LABS: BASOPHILS # (AUTO) 0.1 K/uL (0.00-0.22); BASOPHILS % (AUTO) 0.9 % (0.0-2.0); EOSINOPHILS # (AUTO) 0.1 K/uL (0-0.4); HEMATOCRIT 27.7 % (36-48); HEMOGLOBIN 8.1 g/dL (12.0-16.0); LYMPHOCYTES # (AUTO) 1.9 K/uL (2.5-16.5); LYMPHOCYTES % (AUTO) 22.9 % (20.5-51.1); MEAN CORPUSCULAR HEMOGLOBIN 20 pg (27-31); MEAN CORPUSCULAR HGB CONC 29 g/dL (33-37); MONOCYTES # (AUTO) 0.5 K/uL (0.8-1.0); NEUTROPHILS # (AUTO) 5.6 K/uL (1.8-7.7); NEUTROPHILS % (AUTO) 69.2 % (42.2-75.2); PLATELET COUNT (AUTO) 274 K/uL (140-450); RED BLOOD CELL COUNT(AUTO) 4.07 MIL/uL (4.20-5.40); RED CELL DISTRIBUTION WIDTH 27.7 % (11.6-13.7); WHITE BLOOD COUNT (AUTO) 8.1 K/uL (4.8-10.8)
--- NOTE | 2018-11-17 19:15 | NUR ---
ENDORSED POC TO PLISSE MACHINE OPERATOR HELPER RN. PT IN STABLE CONDITION.
--- NOTE | 2018-11-17 19:20 | NUR ---
RECEIVED BEDSIDE REPORT FROM DAY SHIFT NURSE FOR CONTINUITY OF CARE. PATIENT AWAKE, ALERT, AND COOPERATIVE. RESPIRATION EVEN UNLABORED ON ROOM AIR. DENIES PAIN. SKIN IS WARM AND DRY. IV PATENT AND INTACT. PLAN OF CARE WAS DISCUSSED. ALL SAFETY MEASURES IN PLACE. BED IS AT LOW POSITION. CALL LIGHT WITHIN REACH AND VERBALIZE ITS USE. WILL CONTINUE TO MONITOR
--- NOTE | 2018-11-17 20:00 | NUR ---
INITIAL ASSESSMENT DONE. VITALS WERE TAKEN. PATIENT CONDITION STABLE. NO DISTRESS NOTED. WILL CONTINUE TO MONITOR.
[2018-11-17] MEDS: NACL 0.9% 1,000 ML IV SCH (20:48)
--- NOTE | 2018-11-17 22:00 | NUR ---
CHECKED ON PATIENT. PATIENT IS ON THE PHONE. NO DISTRESS NOTED. WILL CONTINUE TO MONITOR.
[2018-11-18] VITALS: BP 143/58
--- NOTE | 2018-11-18 | NUR ---
VITALS WERE TAKEN. PATIENT CONDITION STABLE. NO DISTRESS NOTED. WILL CONTINUE TO MONITOR.
--- NOTE | 2018-11-18 02:00 | NUR ---
CHECKED PATIENT. PATIENT SLEEPING COMFORTABLY. RESPIRATION EVEN UNLABORED ON ROOM AIR. NO DISTRESS NOTED. WILL CONTINUE TO MONITOR.
--- NOTE | 2018-11-18 04:00 | NUR ---
CHECKED PATIENT. PATIENT SLEEPING RESPIRATION EVEN UNLABORED ON ROOM AIR. NO DISTRESS NOTED. WILL CONTINUE TO MONITOR.
[2018-11-18] MEDS: NACL 0.9% 1,000 ML IV SCH (05:20)
[2018-11-18 06:38] LABS: BASOPHILS % (AUTO) 0.7 % (0.0-2.0); EOSINOPHILS # (AUTO) 0.1 K/uL (0-0.4); EOSINOPHILS % (AUTO) 1.4 % (0.0-4.0); HEMATOCRIT 27.5 % (36-48); HEMOGLOBIN 8.1 g/dL (12.0-16.0); LYMPHOCYTES # (AUTO) 1.8 K/uL (2.5-16.5); LYMPHOCYTES % (AUTO) 24.7 % (20.5-51.1); MEAN CORPUSCULAR HEMOGLOBIN 20 pg (27-31); MEAN CORPUSCULAR HGB CONC 29 g/dL (33-37); MEAN CORPUSCULAR VOLUME 67.7 fL (80-94); MONOCYTES # (AUTO) 0.4 K/uL (0.8-1.0); MONOCYTES % (AUTO) 5.8 % (1.7-9.3); NEUTROPHILS % (AUTO) 67.4 % (42.2-75.2); PLATELET COUNT (AUTO) 263 K/uL (140-450); RED BLOOD CELL COUNT(AUTO) 4.07 MIL/uL (4.20-5.40); WHITE BLOOD COUNT (AUTO) 7.4 K/uL (4.8-10.8)
[2018-11-18 06:59] LABS: ANION GAP 13.4 (8-16); CARBON DIOXIDE 24.8 mmol/L (21-32); CREATININE 0.5 mg/dL (0.6-1.3); POTASSIUM 3.2 mmol/L (3.5-5.1)
[2018-11-18 07:01] LABS: MAGNESIUM 1.9 mg/dL (1.8-2.4); PHOSPHORUS 4.3 mg/dL (2.5-4.9)
--- NOTE | 2018-11-18 07:09 | NUR ---
ENDORSED PATIENT TO DAY SHIFT NURSE FOR CONTINUITY OF CARE. PATIENT IS STABLE.
--- NOTE | 2018-11-18 07:11 | NUR ---
RECEIVED BEDSIDE REPORT FROM FIELD ASSISTANT RN. PT IN STABLE CONDITION. AOX4. DENIES PAIN. LUNGS CTA. HEART RHYTHM REGULAR. SKIN WARM, DRY, AND INTACT. AMBULATORY WITHOUT ASSIST. BED LOCKED & LOW, CALL LIGHT WITHIN REACH. ALL OTHER SAFETY PRECAUTIONS IN PLACE, WILL CONTINUE TO MONITOR.
[2018-11-18 08:00] VITALS: BP 136/48
[2018-11-18] MEDS: FERROUS SULFATE 325 MG TABEC PO SCH (09:08)
[2018-11-18] MEDS: ATENOLOL 50 MG TAB PO SCH (09:08)
--- NOTE | 2018-11-18 09:10 | NUR ---
ADMINISTERED SCHEDULED MEDICATIONS. PT SITTING UP IN BED, NO C/O DISCOMFORT. WILL CONTINUE TO MONITOR.
[2018-11-18] MEDS ORDERED: POTASSIUM CHLORIDE 40 MEQ, LIDOCAINE MPF 1% - 5 mL VIAL 25 MG in NACL 0.9% 250 ML IV ONE (09:50)
[2018-11-18] MEDS ORDERED: POTASSIUM CHLORIDE 10 MEQ TABER PO SCH (09:55)
--- NOTE | 2018-11-18 10:24 | NUR ---
ADMINISTERED KDUR. PT SITTING UP IN BED, DENIES PAIN AND DISCOMFORT. WILL CONTINUE TO MONITOR.
[2018-11-18] MEDS ORDERED: FAMO-90 PO (12:02)
[2018-11-18] MEDS ORDERED: DOCU-299 PO (12:02)
[2018-11-18] MEDS ORDERED: ATOR10TA PO (12:50)
--- NOTE | 2018-11-18 14:32 | NUR ---
DISCHARGE DISCHARGE PAPERWORK, INCLUDING INSTRUCTIONS TO F/U WITH PCP (PCP OFFICE TO CALL PT TO SCHEDULE APPT), GIVEN TO PATIENT. PATIENT IS ARMENIAN SPEAKING BUT PREFERS FAMILY MEMBER AT BEDSIDE TO TRANSLATE. NEW PRESCRIPTION/MEDICATION TEACHING AND MEDICATION RECONCILIATION TEACHING GIVEN TO PATIENT. FAMILY MEMBER VERBALIZED COMPLETE UNDERSTANDING OF ALL D/C TEACHING. PT REFUSED FLU VACCINE. PNEUMOVAX NOT INDICATED. IV SITE REMOVED WITH MINIMAL BLOOD LOSS AND LUMEN COMPLETELY INTACT. ID BANDS REMOVED. ALL PERSONAL BELONGINGS ARE WITH PATIENT. PATIENT WILL GO HOME WITH FAMILY MEMBER VIA PRIVATE VEHICLE. Addendum: 11/18/18 at 1451 by Liv Villagran Meng, RN REPORT OF CT ABD/PELVIS AND SMALL BOWEL FOLLOW THROUGH GIVEN TO PATIENT. DR. GONZALEZ'S OFFICE INFO GIVEN TO PATIENT. PT INSTRUCTED TO F/U FOR HERNIA OUTPATIENT W/ DR. GONZALEZ.
--- NOTE | 2018-11-18 14:49 | NUR ---
PATIENT DRESSED AND HAS LEFT UNIT WITH FAMILY MEMBER. IN STABLE CONDITION.
[2018-11-19] MEDS ORDERED: ASCO500T45 PO (09:17)
[2018-11-19] MEDS ORDERED: FERR325E14 PO (09:17)
== END 2018-11-18 14:50 | disposition home or self-care (01) | DRG 254 ==
LOC: MED 00:45 → MTU 03:44
PROVIDERS: ADMIT General Practice; ATTEND General Practice
PROC: 30233N1 Transfusion of Nonautologous Red Blood Cells into Peripheral Vein, Percutaneous Approach (ICD-10-PCS; principal; 2018-11-16)
DX: K42.9 Umbilical hernia without obstruction or gangrene (principal); E66.01 Morbid (severe) obesity due to excess calories; K43.9 Ventral hernia without obstruction or gangrene; K59.00 Constipation, unspecified; D50.9 Iron deficiency anemia, unspecified; E87.6 Hypokalemia; D25.9 Leiomyoma of uterus, unspecified; E78.1 Pure hyperglyceridemia; I10 Essential (primary) hypertension; Z68.43 Body mass index [BMI] 50.0-59.9, adult; Z79.899 Other long term (current) drug therapy; Z90.49 Acquired absence of other specified parts of digestive tract; Z82.5 Family history of asthma and other chronic lower respiratory diseases; Z80.3 Family history of malignant neoplasm of breast; Z82.3 Family history of stroke; Z82.49 Family history of ischemic heart disease and other diseases of the circulatory system; Z56.0 Unemployment, unspecified
CPT/HCPCS: 36415; 71045; 74250; 80048; 80053; 80305; 81003; 81025; 82150; 82272; 82607; 82746; 83036; 83540; 83690; 83735; 83880; 84100; 84443; 84484; 85025; 85045; 85610; 85730; 86886; 86900; 86901; 86920; 87081; 93005; 96361; 96374; 96375; 99285; J1885; J2001; J2405; J2916; J3480; J7030; J7042; P9016; Q0092; Q0163; Q9967

== ENCOUNTER 2019-11-18 00:02 | Inpatient (IN) | payer MEDICAID ==
[~2019-11-18] VITALS: Ht 144.8 cm; Wt 98.0 kg
[~2019-11-18 00:02] MED LIST changes: -ACET-1182 PO; +ASCO500T45 PO; +ATEN50TA8 PO; +ATOR10TA PO; -ATOR20TA40 PO; +DOCU-299 PO; +FAMO-90 PO; +FERR325E14 PO; +HYDR-5122 PO; +IBUP-2218 PO; +ONDA8TAB PO; -SIME80CT27 PO
[2019-11-18 00:17] VITALS: BP 174/79
--- NOTE | 2019-11-18 00:33 | NUR ---
PT BIB DAUGHTER C/O DIFFUSE ABD PAIN X2 HOURS W/ N/V. PT AMBULATED TO BED 4, AAOX4, SPEAKING IN COMPLETE SENTENCES. ABD IS SOFT, TENDER TO TOUCH IN LUQ AND RLQ WITH PALPABLE MASSES IN RLQ AND LUQ. PT DENIES FEVER, DIARRHEA, CONSTIPATION, OR DYSURIA. PT REPORTS STRANGULATED HERNIA IN LUQ AND RLQ, AND FREQUENT ABD PAIN FROM HERNIA THAT IS NOT RELIEVED BY OTC MEDICATION. VSS. DR BRADFORD TO SEE PT. PMH:HTN, ANEMIA, CHOLESTEROL
[2019-11-18] MEDS ORDERED: NACL 0.9% 1,000 ML IV SCH (00:52)
[2019-11-18] MEDS ORDERED: MORPHINE SULFATE 4 MG/ML SYR IVP ONE (00:55)
[2019-11-18] MEDS ORDERED: ONDANSETRON 4 MG/2 ML VIAL IVP ONE (00:55)
[2019-11-18 01:09] LABS: EOSINOPHILS # (AUTO) 0.1 K/uL (0-0.4); MONOCYTES # (AUTO) 0.5 K/uL (0.8-1.0)
[2019-11-18 01:09] LABS: APPEARANCE,URINE CLOUDY (CLEAR); BILIRUBIN,URINE NEGATIVE (NEGATIVE); BLOOD, URINE NEGATIVE (NEGATIVE); COLOR,URINE YELLOW (YELLOW); LEUKOCYTE ESTERASE ,URINE NEGATIVE (NEGATIVE); NITRITE, URINE NEGATIVE (NEGATIVE); UGLUCOSE NEGATIVE (NEGATIVE)
[2019-11-18 01:14] LABS: BASOPHILS # (AUTO) 0.1 K/uL (0.00-0.22); BASOPHILS % (AUTO) 0.7 % (0.0-2.0); EOSINOPHILS % (AUTO) 0.9 % (0.0-4.0); HEMATOCRIT 24.5 % (36-48); LYMPHOCYTES # (AUTO) 1.6 K/uL (2.5-16.5); LYMPHOCYTES % (AUTO) 12.9 % (20.5-51.1); MEAN CORPUSCULAR HEMOGLOBIN 17 pg (27-31); MEAN CORPUSCULAR HGB CONC 28 g/dL (33-37); MONOCYTES % (AUTO) 3.7 % (1.7-9.3); NEUTROPHILS # (AUTO) 10.1 K/uL (1.8-7.7); NEUTROPHILS % (AUTO) 81.8 % (42.2-75.2); PLATELET COUNT (AUTO) 254 K/uL (140-450); RED BLOOD CELL COUNT(AUTO) 4.06 MIL/uL (4.20-5.40); WHITE BLOOD COUNT (AUTO) 12.3 K/uL (4.8-10.8)
[2019-11-18 01:26] LABS: ALBUMIN 3.8 g/dL (3.4-5.0); CARBON DIOXIDE 25.5 mmol/L (21-32); CREATININE 0.6 mg/dL (0.6-1.3); TOTAL BILIRUBIN 0.2 mg/dL (0.0-1.0)
[2019-11-18 01:32] LABS: ANION GAP 14.3 (8-16); POTASSIUM 3.8 mmol/L (3.5-5.1)
[2019-11-18 01:40] LABS: MEAN CORPUSCULAR VOLUME 60.5 fL (80-94)
--- NOTE | 2019-11-18 02:09 | NUR ---
pt getting transfer to ct via [facility].
--- NOTE | 2019-11-18 02:37 | NUR ---
PT RETURNED BACK FROM CT.
[2019-11-18] MEDS ORDERED: ONDANSETRON 4 MG/2 ML VIAL IVP PRN (03:50)
[2019-11-18] MEDS ORDERED: HYDROcodone/APAP 7.5/325 MG 1 TAB PO PRN (03:50)
[2019-11-18] MEDS ORDERED: ACETAMINOPHEN 325 MG TAB PO PRN (03:50)
--- NOTE | 2019-11-18 04:23 | NUR ---
Patient will be admitted to care of DR. HALEY. Admited to M/S. Will go to room 106B. Belongings list completed. Report to AMAYA CEE.
--- NOTE | 2019-11-18 04:23 | NUR ---
ADMITTED PATIENT 43 Y/O FEMALE. FROM HOME. ENDORSED BY AMAYA NEFF FROM [facility] PATIENT IS AOX4. AMBULATORY. NO SOB. RESPIRATION EVEN AND UNLABORED. DENIES PAIN. RAC IV SITE. INTACT. PATENT. NPO FOR POSSIBLE SURGERY TODAY. INITIAL ASSESSMENT DONE PER PROTOCOL. STARTED IVF. INFUSING WELL. PLAN OF CARE WAS DISCUSSED. CALL LIGHT WITHIN REACH.
[2019-11-18 04:35] LABS: FREE T4 (FREE THYROXINE) 0.9 ng/dL (0.76-1.46); MAGNESIUM 1.8 mg/dL (1.8-2.4); PHOSPHORUS 3.4 mg/dL (2.5-4.9); THYROID STIMULATING HORMONE 1.61 uIU/mL (0.34-3.74)
[2019-11-18] MEDS: DEXT 5% /NACL 0.9% 1,000 ML IV SCH ×2 (05:53→13:50)
[2019-11-18] MEDS ORDERED: SODIUM FERRIC GLUCONATE 125 MG in NACL 0.9% 100 ML IV ONE (06:00)
[2019-11-18 06:53] VITALS: BP 128/59
--- NOTE | 2019-11-18 07:25 | NUR ---
RECEIVED REPORT FROM SAFETY SUPERVISOR NURSE COLEMAN-RN. PT RESTING IN BED, AOX4, OCCITAN SPEAKING. DISCUSSED PLAN OF CARE AND PT VERBALIZED UNDERSTANDING. IV SITE RIGHT AC #18G RUNNING NS 0.9% @ 100ML/HR. LUQ/RLQ TENDER PALPABLE MASS. NPO EXCEPT MEDS. SKIN INTACT, AMBULATORY. NO S/S OF RESPIRATORY DISTRESS OR DISCOMFORT NOTED AT THIS TIME. WILL CONTINUE TO MONITOR.
--- NOTE | 2019-11-18 07:25 | NUR ---
PATIENT IS RESTING. DENIES PAIN. NOT IN ANY ACUTE DISTRESS. ENDORSED PATIENT TO AM SHIFT RN FOR CONTINUITY OF CARE.
[2019-11-18 07:44] LABS: BARBITURATE, URINE NEGATIVE ng/ml (NEG <=200); BENZODIAZEPINE, URINE NEGATIVE ng/mL (NEG <=200); CANNABINOID, URINE NEGATIVE ng/mL (NEG <=50); COCAINE, URINE NEGATIVE ng/mL (NEG <=300); OPIATE, URINE NEGATIVE ng/mL (NEG <=2000); PHENCYCLIDINE SCREEN,URINE NEGATIVE ng/mL (NEG <=25)
[2019-11-18 07:58] LABS: CHOL/HDL RATIO 8.8 (1-4.5)
[2019-11-18 08:00] VITALS: BP 131/56
[2019-11-18] MEDS ORDERED: FERROUS SULFATE 325 MG TABEC PO SCH (08:00)
--- NOTE | 2019-11-18 08:12 | NUR ---
SCHEDULED MEDICATIONS FERROUS SULFATE, COLACE AND VITAMIN C GIVEN AND TOLERATED WELL. NO S/S OF RESPIRATORY DISTRESS OR DISCOMFORT NOTED AT THIS TIME. WILL CONTINUE TO MONITOR.
[2019-11-18] MEDS ORDERED: SODIUM FERRIC GLUCONATE 125 MG in NACL 0.9% 100 ML IV SCH (09:00)
[2019-11-18] MEDS ORDERED: ASCORBIC ACID 500 MG TAB PO SCH (09:00)
[2019-11-18] MEDS ORDERED: DOCUSATE SODIUM 100 MG GELCAP PO SCH (09:00)
--- NOTE | 2019-11-18 09:01 | NUR ---
PATIENT HAS BEEN SCREENED AND CATEGORIZED MODERATE NUTRITION RISK. PATIENT WILL BE SEEN WITHIN 3-5 DAYS OF ADMISSION. 11/20/19 11/22/[address]
--- NOTE | 2019-11-18 09:22 | NUR ---
FERRLECIT IV GIVEN AND TOLERATED WELL. SOLAR ENERGY SYSTEMS ENGINEER UNABLE TO GIVE DUE TO UNAVAILABLE VIA PHARMACY. NO S/S OF RESPIRATORY DISTRESS OR DISCOMFORT NOTED AT THIS TIME. WILL CONTINUE TO MONITOR.
--- NOTE | 2019-11-18 09:30 | NUR ---
DR. GUAN IN TO SEE PT AND DISCUSS THAT EMERGENCY SURGERY NOT NEEDED HOWEVER CAN BE DONE OUTPATIENT. PT STATED THAT HER MEDICAL ONLY EXCEPTED FOR EMERGENCY. DR. GUAN SAID HE WOULD RETURN TO FURTHER DISCUSS DECISION ONCE BLOOD TRANSFUSION WAS COMPLETED.
--- NOTE | 2019-11-18 09:45 | NUR ---
PT C/O NAUSEA DUE TO FERROUS SULFATE MEDICATION. ZOFRAN GIVEN AND TOLERATED WELL. NO S/S OF RESPIRATORY DISTRESS OR DISCOMFORT NOTED AT THIS TIME. WILL CONTINUE TO MONITOR.
--- NOTE | 2019-11-18 13:28 | NUR ---
RBC TRANSFUSION STARTED. PT TOLERATING WELL. NO S/S OF RESPIRATORY DISTRESS OR DISCOMFORT NOTED AT THIS TIME. WILL CONTINUE TO MONITOR.
[2019-11-18] MEDS ORDERED: VITC500 PO (15:21)
[2019-11-18] MEDS ORDERED: FER325 PO (15:21)
--- NOTE | 2019-11-18 16:00 | NUR ---
RBC TRANSFUSION COMPLETED. NO REACTIONS. TOLERATED WELL. NO S/S OF RESPIRATORY DISTRESS OR DISCOMFORT NOTED AT THIS TIME. WILL CONTINUE TO MONITOR.
[2019-11-18 16:11] VITALS: BP 144/67
--- NOTE | 2019-11-18 17:05 | NUR ---
DISCHARGE PAPERWORK GIVEN. IV DISCONTINUED, IV CANNULA INTACT. CLOTH DYE RANGE OPERATOR ASSISTED PT TO FRONT LOBBY. PT STABLE AT THIS TIME.
[2019-11-19 06:08] LABS: FOLIC ACID > 20.00 ng/mL (>3.0); TRANSFERRIN 319 mg/dL (192-364)
[2019-11-19 11:18] LABS: FERRITIN 3 ng/mL (15 - 150)
== END 2019-11-18 17:05 | disposition home or self-care (01) | DRG 254 ==
LOC: MED 00:02 → MTU 03:56
PROVIDERS: ADMIT General Practice; ATTEND General Practice
PROC: 30233N1 Transfusion of Nonautologous Red Blood Cells into Peripheral Vein, Percutaneous Approach (ICD-10-PCS; principal; 2019-11-18)
DX: K42.0 Umbilical hernia with obstruction, without gangrene (principal); E66.01 Morbid (severe) obesity due to excess calories; D50.0 Iron deficiency anemia secondary to blood loss (chronic); I10 Essential (primary) hypertension; N93.8 Other specified abnormal uterine and vaginal bleeding; E78.5 Hyperlipidemia, unspecified; D72.829 Elevated white blood cell count, unspecified; E86.0 Dehydration; D25.9 Leiomyoma of uterus, unspecified; Z68.42 Body mass index [BMI] 45.0-49.9, adult; Z71.3 Dietary counseling and surveillance; Z79.899 Other long term (current) drug therapy; Z90.49 Acquired absence of other specified parts of digestive tract; Z82.3 Family history of stroke; Z82.49 Family history of ischemic heart disease and other diseases of the circulatory system; Z80.3 Family history of malignant neoplasm of breast; Z82.5 Family history of asthma and other chronic lower respiratory diseases
CPT/HCPCS: 36415; 80053; 80305; 81003; 82150; 82607; 82728; 82746; 83036; 83540; 83605; 83690; 83735; 83880; 84100; 84439; 84443; 84484; 85025; 85045; 85610; 85730; 86886; 86900; 86901; 86920; 87081; 93005; 96361; 96374; 96375; 99285; J2270; J2405; J2916; J7030; J7042; P9016; Q9967

== ENCOUNTER 2020-05-16 13:45 | Emergency (ER) | payer MEDICAID ==
[~2020-05-16] VITALS: Ht 144.8 cm; Wt 91.2 kg
[~2020-05-16 13:45] MED LIST changes: +ACET-2619 PO; -ASCO500T45 PO; -ATOR10TA PO; -FAMO-90 PO; -FERR325E14 PO; -HYDR-5122 PO; -IBUP-2218 PO; -ONDA8TAB PO
[2020-05-16 13:56] VITALS: BP 154/86
[2020-05-16 14:34] VITALS: BP 144/81
== END 2020-05-16 14:34 | disposition home or self-care (01) ==
LOC: MED 13:45
DX: T81.89XA Other complications of procedures, not elsewhere classified, initial encounter (principal); I10 Essential (primary) hypertension; E78.00 Pure hypercholesterolemia, unspecified; Z90.49 Acquired absence of other specified parts of digestive tract; Z79.899 Other long term (current) drug therapy
CPT/HCPCS: 99283

== ENCOUNTER 2020-05-30 21:58 | Emergency (ER) | payer MEDICAID ==
[~2020-05-30] VITALS: Ht 144.8 cm; Wt 96.7 kg
--- NOTE | 2020-05-30 22:19 | NUR ---
PT AMBUALTED TO RESTROOM WITH STEADY GAIT.
[2020-05-30] MEDS ORDERED: NACL 0.9% 500 ML IV ONE (22:20)
[2020-05-30] MEDS ORDERED: ASPIRIN 81 MG TAB.CHEW PO ONE (22:20)
[2020-05-30] MEDS ORDERED: CLONIDINE HYDROCHLORIDE 0.1 MG TAB PO ONE (22:20)
--- NOTE | 2020-05-30 22:22 | NUR ---
PT AMBULATED TO BED 11 WITH STEADY GAIT.
--- NOTE | 2020-05-30 22:30 | NUR ---
44 year old female coming in for c/o high bp today, bp upon assessment 147/40. given clonidine 0.1mg PO. + headache, denies blurry vision. reports sternal chest pain 6/10 that is radiating to lower back. denies SOB/cough. CBL sounds. pt reports numbness to BUE. denies n/v/d. denies constipation. MSE completed by Dr. Hammond. all other systems WNL. connected to cardiac monitoring. inguinal hernia wound vac present. pmhx: HTN, HLD, Inguinal hernia allx: PCN
--- NOTE | 2020-05-30 22:38 | NUR ---
ekg performed at bedside. ekg reads sinus rhythm @ 50
[2020-05-30] MEDS ORDERED: PANTOPRAZOLE 40 MG INJ VIAL IVP ONE (22:45)
[2020-05-30] MEDS ORDERED: ONDANSETRON 4 MG/2 ML VIAL IVP ONE (22:45)
--- NOTE | 2020-05-30 22:58 | NUR ---
pt taken to CT via w/c
[2020-05-30 23:06] LABS: BASOPHILS # (AUTO) 0.1 K/uL (0.00-0.22); BASOPHILS % (AUTO) 0.8 % (0.0-2.0); EOSINOPHILS # (AUTO) 0.4 K/uL (0-0.4); HEMATOCRIT 28.9 % (36-48); HEMOGLOBIN 9.3 g/dL (12.0-16.0); LYMPHOCYTES # (AUTO) 1.7 K/uL (2.5-16.5); LYMPHOCYTES % (AUTO) 13.6 % (20.5-51.1); MEAN CORPUSCULAR HEMOGLOBIN 28 pg (27-31); MEAN CORPUSCULAR HGB CONC 32 g/dL (33-37); MEAN CORPUSCULAR VOLUME 84.8 fL (80-94); MONOCYTES # (AUTO) 0.7 K/uL (0.8-1.0); MONOCYTES % (AUTO) 5.6 % (1.7-9.3); NEUTROPHILS # (AUTO) 9.8 K/uL (1.8-7.7); PLATELET COUNT (AUTO) 337 K/uL (140-450); WHITE BLOOD COUNT (AUTO) 12.7 K/uL (4.8-10.8)
--- NOTE | 2020-05-30 23:08 | NUR ---
returned from CT.
[2020-05-30 23:22] LABS: ALBUMIN 3.3 g/dL (3.4-5.0); ANION GAP 16.3 (8-16); CREATININE 1.5 mg/dL (0.6-1.3); POTASSIUM 4.3 mmol/L (3.5-5.1); TOTAL BILIRUBIN 0.3 mg/dL (0.0-1.0)
--- NOTE | 2020-05-30 23:51 | NUR ---
Dr. Amaral at bedside.
[2020-05-30] MEDS ORDERED: KETOROLAC 30 MG/ML VIAL IVP ONE (23:55)
[2020-05-30] MEDS ORDERED: KETOROLAC 30 MG/ML VIAL ONE (23:57)
--- NOTE | 2020-05-31 00:06 | NUR ---
pt refused toradol
[2020-05-31 01:20] VITALS: BP 118/49
--- NOTE | 2020-05-31 01:20 | NUR ---
Patient discharged with v/s stable. Written and verbal after care instructions given and explained. Patient alert, oriented and verbalized understanding of instructions. Ambulatory with steady gait. All questions addressed prior to discharge. ID band removed. Patient advised to follow up with PMD. Rx of HYDROCHLOROTHIAZIDE given. Patient educated on indication of medication including possible reaction and side effects. Opportunity to ask questions provided and answered.
== END 2020-05-31 01:20 | disposition home or self-care (01) ==
LOC: MED 21:58
DX: I12.9 Hypertensive chronic kidney disease with stage 1 through stage 4 chronic kidney disease, or unspecified chronic kidney disease (principal); N18.9 Chronic kidney disease, unspecified; D64.9 Anemia, unspecified; R07.9 Chest pain, unspecified; R51.9 Headache, unspecified
CPT/HCPCS: 36415; 70450; 71045; 80053; 81002; 81025; 84484; 85025; 93005; 96361; 96374; 96375; 99285; C9113; J2405; J7030; Q0092; J1885

== ENCOUNTER 2022-01-12 12:07 | Inpatient (IN) | payer MEDICAID ==
[~2022-01-12] VITALS: Ht 147.3 cm; Wt 49.0 kg
[2022-01-12 12:16] VITALS: BP 154/80
--- NOTE | 2022-01-12 12:22 | NUR ---
PT W/C ASSISTED TO BED 10.
[2022-01-12] MEDS ORDERED: ONDANSETRON 4 MG/2 ML VIAL IVP ONE ×2 (12:35→14:35)
[2022-01-12] MEDS ORDERED: KETOROLAC 30 MG/ML VIAL IVP ONE (12:35)
[2022-01-12] MEDS ORDERED: NACL 0.9% 1,000 ML IV ONE (12:35)
[2022-01-12] MEDS ORDERED: MORPHINE SULFATE 4 MG/ML SYR IVP ONE ×3 (13:00→14:30)
--- NOTE | 2022-01-12 13:05 | NUR ---
46/F PRESENTS TO ED WITH C/O ABDOMINAL PAIN AND NAUSEA/VOMITING SINCE THIS MORNING. PATIENT REPORTS PAIN CAME ON SUDDENLY, STATES HX OF UMBLICIAL HERNIA WHICH SHE RECEIVED SURGERY TWICE ON, STATING PAIN FEELS SIMILAR. PATIENT DENIES CONSTIPATION, DIARRHEA, FEVER, CHILLS OR URINARY SYMPTOMS.
[2022-01-12 13:13] LABS: LYMPHOCYTES # (AUTO) 2.2 K/uL (2.5-16.5); MEAN CORPUSCULAR HGB CONC 31 g/dL (33-37); MONOCYTES # (AUTO) 0.5 K/uL (0.8-1.0)
[2022-01-12 13:17] LABS: BASOPHILS # (AUTO) 0.1 K/uL (0.00-0.22); BASOPHILS % (AUTO) 0.4 % (0.0-2.0); EOSINOPHILS # (AUTO) 0.1 K/uL (0-0.4); EOSINOPHILS % (AUTO) 0.4 % (0.0-4.0); HEMATOCRIT 35.9 % (36-48); HEMOGLOBIN 11.2 g/dL (12.0-16.0); LYMPHOCYTES % (AUTO) 16.2 % (20.5-51.1); MEAN CORPUSCULAR HEMOGLOBIN 21 pg (27-31); MEAN CORPUSCULAR VOLUME 67.4 fL (80-94); MONOCYTES % (AUTO) 3.7 % (1.7-9.3); NEUTROPHILS % (AUTO) 79.3 % (42.2-75.2); PLATELET COUNT (AUTO) 381 K/uL (140-450); RED BLOOD CELL COUNT(AUTO) 5.34 MIL/uL (4.20-5.40); RED CELL DISTRIBUTION WIDTH 18.1 % (11.6-13.7); WHITE BLOOD COUNT (AUTO) 13.9 K/uL (4.8-10.8)
--- NOTE | 2022-01-12 13:41 | NUR ---
RADON INSPECTOR ATTEMPTED TAKE PATIENT TO ORDERED CT, PATIENT REPORTING PAIN AND STATES SHE WANTS TO WAIT. DR. ROYAL MADE AWARE
--- NOTE | 2022-01-12 13:55 | NUR ---
PATIENT TAKEN TO CT VIA JHONATAN
[2022-01-12 14:08] LABS: ALBUMIN 4.2 g/dL (3.4-5.0); ANION GAP 15.5 (8-16); CARBON DIOXIDE 26.2 mmol/L (21-32); CREATININE 0.6 mg/dL (0.6-1.3); POTASSIUM 3.7 mmol/L (3.5-5.1); TOTAL BILIRUBIN 0.3 mg/dL (0.0-1.0)
--- NOTE | 2022-01-12 14:09 | NUR ---
PT BACK FROM CT
--- NOTE | 2022-01-12 14:21 | NUR ---
LAB AT BEDSIDE
[2022-01-12] MEDS ORDERED: ONDANSETRON 4 MG/2 ML VIAL ONE (14:36)
[2022-01-12 15:38] VITALS: BP 161/85
--- NOTE | 2022-01-12 15:54 | NUR ---
Patient will be admitted to care of DR. MAYA. Admited to TELE. Will go to room 112A. Belongings list completed. BEDSIDE REPORT TO AMAYA CASTILLO.
--- NOTE | 2022-01-12 16:05 | NUR ---
ARRIVED FROM ER. ABLE TO AMBULATE TO [facility] BED. NO DISTRESS NOTED. ABDOMINAL PAIN WITHIN TOLERABLE AT THIS TIME. DAUGHTER AT BEDSIDE. AAOX4, ROOM AIR, SKIN INTACT, IV SITE INTACT, PATENT, ON SALINE LOCK. ORIENTED PATIENT TO ROOM AND CALL LIGHT. REVIEWED PLAN OF CARE WITH PATIENT. VERBALIZED UNDERSTANDING. SAFETY MEASURES IN PLACE, CALL LIGHT WITHIN REACH. WILL CONTINUE TO MONITOR.
[2022-01-12] MEDS ORDERED: ZOLPIDEM 5 MG TAB PO PRN (18:00)
[2022-01-12] MEDS ORDERED: HYDROcodone/APAP 5/325 MG 1 TAB TAB PO PRN (18:00)
[2022-01-12] MEDS ORDERED: ONDANSETRON 4 MG/2 ML VIAL IVP PRN (18:00)
[2022-01-12] MEDS ORDERED: DOCUSATE SODIUM 100 MG GELCAP PO PRN (18:00)
[2022-01-12] MEDS ORDERED: LORazepam 2 MG/ML VIAL IM/IVP PRN (18:00)
[2022-01-12] MEDS ORDERED: NACL 0.9% 1,000 ML IV SCH (18:00)
[2022-01-12] MEDS ORDERED: ACETAMINOPHEN 325 MG TAB PO PRN (18:00)
[2022-01-12] MEDS ORDERED: MAG SULF 2000 MG/WATER PREMIX 50 ML IV PRN (18:00)
[2022-01-12] MEDS ORDERED: MORPHINE SULFATE 2 MG/ML SYR IVP PRN (18:00)
[2022-01-12] MEDS ORDERED: SODIUM PHOS / POTASSIUM PHOS 1 PKT PDR PO PRN (18:00)
[2022-01-12] MEDS ORDERED: POTASSIUM CHLORIDE 10 MEQ TABER PO PRN (18:00)
[2022-01-12 18:27] LABS: PROTHROMBIN TIME 10.2 secs (10.8-13.4)
[2022-01-12 18:40] LABS: AMYLASE 40 U/L (25-115); FREE T4 (FREE THYROXINE) 1.02 ng/dL (0.76-1.46); HDL CHOLESTEROL 23 mg/dL (40-60); LDL (CALC) 126 mg/dL (60-100); LIPASE 60 U/L (73-393); PHOSPHORUS 3.2 mg/dL (2.5-4.9); THYROID STIMULATING HORMONE 0.82 uIU/mL (0.34-3.74); TRIGLYCERIDES 289 mg/dL (30-150)
--- NOTE | 2022-01-12 19:32 | NUR ---
RECEIVED BEDSIDE REPORT FOR CONTINUITY OF PATIENT CARE.
--- NOTE | 2022-01-12 19:32 | NUR ---
GAVE REPORT TO LINING CUTTER NURSE FOR CONTINUITY OF CARE. PATIENT IN STABLE CONDITION.
[2022-01-12 21:59] LABS: APPEARANCE,URINE CLEAR (CLEAR); BILIRUBIN,URINE NEGATIVE (NEGATIVE); BLOOD, URINE NEGATIVE (NEGATIVE); COLOR,URINE YELLOW (YELLOW); LEUKOCYTE ESTERASE ,URINE NEGATIVE (NEGATIVE); NITRITE, URINE NEGATIVE (NEGATIVE); UGLUCOSE NEGATIVE (NEGATIVE)
--- NOTE | 2022-01-12 22:00 | NUR ---
PATIENT IS ON STABLE CONDITION, IVF RUNNING WELL. NO COMPLAINTS OF PAIN OR DISCOMFORT.
[2022-01-12 22:03] LABS: BARBITURATE, URINE NEGATIVE ng/ml (NEG <=200); BENZODIAZEPINE, URINE NEGATIVE ng/mL (NEG <=200); COCAINE, URINE NEGATIVE ng/mL (NEG <=300)
[2022-01-12 22:04] LABS: CANNABINOID, URINE NEGATIVE ng/mL (NEG <=50); PHENCYCLIDINE SCREEN,URINE NEGATIVE ng/mL (NEG <=25)
[2022-01-12 22:06] LABS: OPIATE, URINE POSITIVE ng/mL (NEG <=2000)
[2022-01-13 07:09] LABS: ALBUMIN 3.6 g/dL (3.4-5.0); ANION GAP 14.2 (8-16); CARBON DIOXIDE 26.7 mmol/L (21-32); CREATININE 0.6 mg/dL (0.6-1.3); MAGNESIUM 2.1 mg/dL (1.8-2.4); POTASSIUM 3.9 mmol/L (3.5-5.1); TOTAL BILIRUBIN 0.4 mg/dL (0.0-1.0)
[2022-01-13 07:13] LABS: BASOPHILS % (AUTO) 0.5 % (0.0-2.0); EOSINOPHILS # (AUTO) 0.1 K/uL (0-0.4); EOSINOPHILS % (AUTO) 0.8 % (0.0-4.0); HEMATOCRIT 33.1 % (36-48); HEMOGLOBIN 10.2 g/dL (12.0-16.0); LYMPHOCYTES # (AUTO) 2.1 K/uL (2.5-16.5); LYMPHOCYTES % (AUTO) 23.3 % (20.5-51.1); MEAN CORPUSCULAR HEMOGLOBIN 21 pg (27-31); MEAN CORPUSCULAR HGB CONC 31 g/dL (33-37); MEAN CORPUSCULAR VOLUME 68.4 fL (80-94); MONOCYTES # (AUTO) 0.6 K/uL (0.8-1.0); NEUTROPHILS # (AUTO) 6.2 K/uL (1.8-7.7); NEUTROPHILS % (AUTO) 68.4 % (42.2-75.2); PLATELET COUNT (AUTO) 321 K/uL (140-450); RED BLOOD CELL COUNT(AUTO) 4.84 MIL/uL (4.20-5.40); RED CELL DISTRIBUTION WIDTH 18.1 % (11.6-13.7)
--- NOTE | 2022-01-13 07:20 | NUR ---
RECEIVED REPORT FROM DIRECTOR BUSINESS NURSE. PT IS SLEEPING, AND SEEN CHEST RISE AND FALL. PT IS AOX4. IV SITE ON LEFT AC, 20G, RUNNING AT 50ML/HR. ALL SAFETY MEASURES DONJE, CALL LIGHT WITHIN REACH. DISCUSSED PLAN OF CARE.
--- NOTE | 2022-01-13 07:20 | NUR ---
PT IS ON STABLE CONDITION. IVF IS FLUSHING WELL. NO SIGN/SYMPTOM OF INFECTION ON IV SITE. PT DENIES OF PAIN. ENDORSED TO DAY SHIFT NURSE FOR CONTINUITY OF PATIENT CARE.
--- NOTE | 2022-01-13 09:04 | NUR ---
PATIENT HAS BEEN SCREENED AND CATEGORIZED HIGH NUTRITION RISK. PATIENT WILL BE SEEN WITHIN 1-2 DAYS OF ADMISSION. / REFERRAL FOR NAUSEA AND VOMITING OVER THREE DAYS [address]
--- NOTE | 2022-01-13 11:40 | NUR ---
PT DISCHARGED TO HOME. WHEELED PT TO THE LOBBY, AND PICKED UP BY HER DAUGHTER ASAF. CHANGED TO OWN CLOTHINGS, REMOVED ARM BAND AND IV SITE, BLEEDING CONTROLLED. ALL PT PERSONAL BELONGINGS WERE IN POSSESSION. PT V/S STABLE.
--- NOTE | 2022-01-13 13:36 | NUR ---
DC PLANNING: THE PATIENT PRESENTED FROM HOME WITH C/O ABDOMINAL PAIN AND N/V. H/O HTN, ANEMIA, HYPERLIPIDEMIA, UMBILICAL HERNIA REPAIR X , X 3. CT ABD/PELVIS SHOWS VENTRAL HERNIA CONTAINING A COUPLE OF AND SMALL BOWEL LOOPS AND HEPATIC STEATOSIS. PATIENT REFERRED TO SURGEON DR MARTINEZ, HE DECLINED THE CONSULTATION. CM SPOKE WITH THE PATIENT AND HER DAUGHTER AT BEDSIDE AND CONFIRMED HER ADDRESS AND PHONE NUMBER. SHE LIVES IN A SINGLE STORY HOUSE WITH HER SPOUSE AND 2 CHILDREN AND IS INDEPENDENT IN ALL ACTIVITIES. HER ACTIVITY IS HAMPERED BY ABDOMINAL PAIN AND OBESITY. SHE HAS NO DME OF H/O HOME HEALTH, IT HAS BEEN RECOMMENDED THAT SHE FOLLOW UP FOR SURGICAL CONSULTATION AT A [facility]. THE PATIENT HAS NO PMD AND DOES NOT GO TO A LOCAL CLINIC. CM SUGGESTED THAT RESOURCES FOR CLINICS BE PROVIDED FOR FOLLOW UP, PATIENT AND DAUGHTER DECLINED. THE PATIENTS DAUGHTER STATES THAT IT WAS RECOMMENDED [place] [facility] [place] [facility], CM ALSO ENDORSED [facility] A CHOICE BECAUSE OF THE PATIENTS RESTRICTED M/MYRANDA. ALSO DISCUSSED HOW TO GET THE PATIENTS MEDICAL RECORDS FROM THIS HOSPITAL WELL HER CT ON DISC FOR THE [facility]. THE DAUGHTER STATES THAT THEY WILL NOT DO AN IMMEDIATE F/U AND INSTEAD WANT TO START THE PATIENT ON A PUREED DIET TO DECREASE GASTRIC UPSET AND TO START THE PATIENT ON A WEIGHT LOSS REGIMEN. THE PATIENTS DAUGHTER WILL PROVIDE TRANSPORT HOME, DC ORDER HAS BEEN ENTERED. CM WILL FOLLOW.
== END 2022-01-13 11:40 | disposition home or self-care (01) | DRG 254 ==
LOC: MED 12:07 → MTU 15:15
PROVIDERS: ADMIT Family Medicine; ATTEND Family Medicine
DX: K43.9 Ventral hernia without obstruction or gangrene (principal); K76.0 Fatty (change of) liver, not elsewhere classified; D63.8 Anemia in other chronic diseases classified elsewhere; E66.01 Morbid (severe) obesity due to excess calories; I10 Essential (primary) hypertension; E78.00 Pure hypercholesterolemia, unspecified; Z20.822 Contact with and (suspected) exposure to COVID-19; E78.5 Hyperlipidemia, unspecified; Z88.8 Allergy status to other drugs, medicaments and biological substances; Z79.899 Other long term (current) drug therapy; Z90.49 Acquired absence of other specified parts of digestive tract; Z98.891 History of uterine scar from previous surgery
CPT/HCPCS: 36415; 71045; 80053; 80305; 81003; 82150; 83036; 83690; 83735; 83880; 84100; 84439; 84443; 84484; 85025; 85610; 85730; 87081; 96361; 96374; 96375; 96376; 99285; J1885; J2270; J2405; J7030; Q0092

== ENCOUNTER 2022-03-29 03:20 | Inpatient (IN) | payer MEDICAID ==
[~2022-03-29] VITALS: Ht 144.8 cm; Wt 103.9 kg
[~2022-03-29 03:20] MED LIST changes: -ACET-2619 PO; -ATEN50TA8 PO; -DOCU-299 PO; +METO-485 PO; +PANT40EC PO
[2022-03-29 03:37] VITALS: BP 174/92
--- NOTE | 2022-03-29 03:45 | NUR ---
PT TAKEN TO ER BED 5
--- NOTE | 2022-03-29 04:03 | NUR ---
lower abd pain x tonight 10/10 sharp pain. pt state she took no meds for pain. pt denies v/d/headache/ cough. pt states she took no meds. pt last ate buzz alvares. pt states no pmh but pt is in too much pain to answer any further questions.
--- NOTE | 2022-03-29 04:46 | NUR ---
Dr. Bond examining patient.
[2022-03-29] MEDS ORDERED: ONDANSETRON 4 MG/2 ML VIAL IVP ONE (04:50)
[2022-03-29] MEDS ORDERED: MORPHINE SULFATE 4 MG/ML SYR IVP ONE ×2 (04:50→08:55)
[2022-03-29 05:34] LABS: BASOPHILS # (AUTO) 0.1 K/uL (0.00-0.22); BASOPHILS % (AUTO) 0.6 % (0.0-2.0); EOSINOPHILS % (AUTO) 0.4 % (0.0-4.0); HEMATOCRIT 34.4 % (36-48); HEMOGLOBIN 10.8 g/dL (12.0-16.0); LYMPHOCYTES # (AUTO) 1.4 K/uL (2.5-16.5); LYMPHOCYTES % (AUTO) 14.8 % (20.5-51.1); MEAN CORPUSCULAR HEMOGLOBIN 22 pg (27-31); MEAN CORPUSCULAR HGB CONC 31 g/dL (33-37); MEAN CORPUSCULAR VOLUME 69.3 fL (80-94); MONOCYTES # (AUTO) 0.4 K/uL (0.8-1.0); MONOCYTES % (AUTO) 3.6 % (1.7-9.3); NEUTROPHILS # (AUTO) 7.9 K/uL (1.8-7.7); NEUTROPHILS % (AUTO) 80.6 % (42.2-75.2); PLATELET COUNT (AUTO) 277 K/uL (140-450); RED BLOOD CELL COUNT(AUTO) 4.96 MIL/uL (4.20-5.40); WHITE BLOOD COUNT (AUTO) 9.8 K/uL (4.8-10.8)
--- NOTE | 2022-03-29 05:40 | NUR ---
pt ambulate to bathroom
[2022-03-29 05:43] LABS: ALBUMIN 3.8 g/dL (3.4-5.0); ANION GAP 12.9 (8-16); CREATININE 0.4 mg/dL (0.6-1.3); POTASSIUM 3.9 mmol/L (3.5-5.1); TOTAL BILIRUBIN 0.3 mg/dL (0.0-1.0)
[2022-03-29 06:02] LABS: APPEARANCE,URINE CLEAR (CLEAR); BILIRUBIN,URINE NEGATIVE (NEGATIVE); BLOOD, URINE NEGATIVE (NEGATIVE); COLOR,URINE YELLOW (YELLOW); LEUKOCYTE ESTERASE ,URINE NEGATIVE (NEGATIVE); NITRITE, URINE NEGATIVE (NEGATIVE); PH,URINE 8.5 (5.0-9.0); UGLUCOSE NEGATIVE (NEGATIVE)
[2022-03-29 06:04] LABS: HCG,QUANTITATIVE < 1 mIU/mL (0-6)
--- NOTE | 2022-03-29 07:51 | NUR ---
46YR OLD FEMALE C/O ABD PAIN X1DAY. 10 PAIN LEVEL. STARTED LAST NIGHT RLQ PAIN RADIATES TO RL BACK FLANK AREA. DENIES FEVER VOMITING . PT IS A&OX4. SKIN WARM PINK DRY. PT RESTING IN BED. ON METERS SUPERINTENDENT. SIDE RAILS UP X2 BED AT LOWEST POSITION. VANCO HTN
--- NOTE | 2022-03-29 08:52 | NUR ---
PATIENT AWAKE STATES HAVING PAIN 6/10. PATIENT ON THE PHONE WITH DAUGHTER .
--- NOTE | 2022-03-29 09:37 | NUR ---
COVID SWAB COLLECTED
--- NOTE | 2022-03-29 10:17 | NUR ---
PT WILL BE A TELE ADMIT
[2022-03-29] MEDS ORDERED: guaiFENesin DM 200/20 MG-10 ML 10 ML UDC PO PRN (10:35)
[2022-03-29] MEDS ORDERED: oxyCODONE/APAP 5/325 MG 1 TAB TAB PO PRN (10:35)
[2022-03-29] MEDS ORDERED: ONDANSETRON 4 MG/2 ML VIAL IM/IVP PRN (10:35)
[2022-03-29] MEDS ORDERED: HYDROcodone/APAP 7.5/325 MG 1 TAB PO PRN (10:35)
[2022-03-29] MEDS ORDERED: ZOLPIDEM 5 MG TAB PO PRN (10:35)
[2022-03-29] MEDS ORDERED: ACETAMINOPHEN 325 MG TAB PO PRN (10:35)
[2022-03-29] MEDS ORDERED: HYDROmorphone 1 MG/ML AMP IVP PRN (10:35)
[2022-03-29] MEDS ORDERED: DOCUSATE SODIUM 100 MG GELCAP PO PRN (10:35)
[2022-03-29] MEDS: DEXT 5% /NACL 0.9% 1,000 ML IV SCH ×2 (11:05→17:34)
--- NOTE | 2022-03-29 11:14 | NUR ---
ADMISSION ORDERS FOR TELE. MED RECONCILE AND PERSONAL BELONGINGS COMPLETED
--- NOTE | 2022-03-29 11:17 | NUR ---
PT ADMITTED TO TELE. PENDING BED ASSIG. PT IS ON PHONE WITH WITH FAMILY. HOB ELEVATED. RESP EVEN AND UNLABORED . NO DISTRESS NOTED. PT ON BENEFITS OFFICER
[2022-03-29 11:37] LABS: PROTHROMBIN TIME 10.7 secs (10.8-13.4)
--- NOTE | 2022-03-29 12:07 | NUR ---
DR GUAN AT BEDSIDE
[2022-03-29 12:08] LABS: AMYLASE 36 U/L (25-115); CHOL/HDL RATIO 5.7 (1-4.5); FREE T4 (FREE THYROXINE) 0.85 ng/dL (0.76-1.46); HDL CHOLESTEROL 31 mg/dL (40-60); LDL (CALC) 105 mg/dL (60-100); MAGNESIUM 1.8 mg/dL (1.8-2.4); PHOSPHORUS 4.8 mg/dL (2.5-4.9); THYROID STIMULATING HORMONE 1.06 uIU/mL (0.34-3.74); TRIGLYCERIDES 204 mg/dL (30-150)
--- NOTE | 2022-03-29 15:30 | NUR ---
PT TO XRAY
--- NOTE | 2022-03-29 16:29 | NUR ---
Patient will be admitted to care of DR CA. Admited to TELE]. Will go to room 106A. Belongings list completed. Report to ANT CONDE.
[2022-03-29 16:46] VITALS: BP 150/67
--- NOTE | 2022-03-29 16:46 | NUR ---
RECEIVED PATIENT FROM ER NURSE VIA JHONATAN. PT ADMITTED FOR INCARCERATED BOWEL. PT IS AOX4, ABLE TO MAKE NEEDS KNOWN. RESPIRATIONS EVEN AND UNLABORED. ON ROOM AIR AND NO DISTRESS NOTED. SKIN IS WARM, DRY, AND INTACT. IV SITE ON LAC 20G INTACT AND PATENT. PT COMPLAINS OF ABD PAIN, RECEIVED PAIN MEDS IN ER. ABD SOFT, FLAT, AND NON-DISTENDED. BOWEL SOUNDS ACTIVE IN ALL QUADRANTS. PLAN OF CARE DISCUSSED. SAFETY PRECAUTIONS IN PLACE. CALL LIGHT WITHIN REACH. WILL CONTINUE TO MONITOR.
--- NOTE | 2022-03-29 19:30 | NUR ---
ENDORSED TO RN URGENT CARE NURSE FOR CONTINUITY OF CARE. PT IS STABLE.
--- NOTE | 2022-03-29 19:33 | NUR ---
GET THE REPORT FROM MORNING NURSE ANT, PATIENT IS LYING ON BED, PATIENT IS ALERT ORIENTED X 4, ALL FALL PRECAUTION MEASURE ARE IN PLACE, CALL LIGHT IS WITHIN THE REACH, WILL CONTINUE TO MONITOR PATIENT.
--- NOTE | 2022-03-29 19:53 | NUR ---
PATIENT IS LYING ON BED ,NO ANY COMPLAIN OF SHORTNESS OF BREATH AT THIS TIME, PATIENT IS COMPLAINING OF PAIN 9/10 , GAVE DILAUDID 1MG IV PRN PER DOCTOR ORDER FOR PAIN , ALSO PATIENT IS COMPLAINING OF NAUSEA, GAVE ZOFRAN 4MG IV PRN PER DOCTOR ORDER, VITAL SIGN IS WITHIN THE NORMAL RANGE, CALL LIGHT IS WITHIN THE REACH, WILL CONTINUE TO MONITOR PATIENT.
[2022-03-29 20:00] VITALS: BP 121/46
[2022-03-30] VITALS: BP 125/60
--- NOTE | 2022-03-30 00:06 | NUR ---
PATIENT IS LYING ON BED, NO ANY COMPLAIN OF PAIN OR SHORTNESS OF BREATH AT THIS TIME, VITAL SIGN IS WITHIN THE NORMAL RANGE, CALL LIGHT IS WITHIN THE REACH, WILL CONTINUE TO MONITOR PATIENT.
[2022-03-30] MEDS: DEXT 5% /NACL 0.9% 1,000 ML IV SCH ×2 (01:25→08:36)
[2022-03-30 04:00] VITALS: BP 126/67
--- NOTE | 2022-03-30 04:04 | NUR ---
VITAL SIGN IS WITHIN THE NORMAL RANGE, NO ANY COMPLAIN OF PAIN OR SHORTNESS OF BREATH AT THIS TIME, CALL LIGHT IS WITHIN THE REACH, WILL CONTINUE TO MONITOR PATIENT.
[2022-03-30 07:06] LABS: BASOPHILS % (AUTO) 0.4 % (0.0-2.0); EOSINOPHILS % (AUTO) 0.8 % (0.0-4.0); HEMATOCRIT 33.2 % (36-48); HEMOGLOBIN 10.3 g/dL (12.0-16.0); LYMPHOCYTES # (AUTO) 1.9 K/uL (2.5-16.5); LYMPHOCYTES % (AUTO) 28.6 % (20.5-51.1); MEAN CORPUSCULAR HEMOGLOBIN 22 pg (27-31); MEAN CORPUSCULAR HGB CONC 31 g/dL (33-37); MEAN CORPUSCULAR VOLUME 70.4 fL (80-94); MONOCYTES # (AUTO) 0.5 K/uL (0.8-1.0); MONOCYTES % (AUTO) 7.9 % (1.7-9.3); NEUTROPHILS % (AUTO) 62.3 % (42.2-75.2); PLATELET COUNT (AUTO) 263 K/uL (140-450); RED BLOOD CELL COUNT(AUTO) 4.72 MIL/uL (4.20-5.40); RED CELL DISTRIBUTION WIDTH 19.3 % (11.6-13.7); WHITE BLOOD COUNT (AUTO) 6.5 K/uL (4.8-10.8)
--- NOTE | 2022-03-30 07:26 | NUR ---
GAVE THE REPORT TO MORNING NURSE FOR CONTINUOS OF CARE, PATIENT IS STABLE.
--- NOTE | 2022-03-30 07:45 | NUR ---
RECEIVED PATIENT FROM ACCOUNTING LECTURER NURSE FOR CONTINUITY OF CARE. PT IS AOX4, ABLE TO MAKE NEEDS KNOWN. RESPIRATIONS EVEN AND UNLABORED. ON ROOM AIR AND NO DISTRESS NOTED. SKIN IS WARM, DRY, AND INTACT. IV SITE ON LAC 20G INFUSING FLUIDS ORDERED. DENIES PAIN AT THE MOMENT. PLAN OF CARE DISCUSSED. SAFETY PRECAUTIONS IN PLACE. CALL LIGHT WITHIN REACH. WILL CONTINUE TO MONITOR.
[2022-03-30 07:47] LABS: ANION GAP 11.2 (8-16); CARBON DIOXIDE 27.1 mmol/L (21-32); CREATININE 0.5 mg/dL (0.6-1.3); POTASSIUM 3.3 mmol/L (3.5-5.1)
[2022-03-30 08:00] VITALS: BP 126/65
--- NOTE | 2022-03-30 08:00 | NUR ---
RECEIVED PATIENT FROM GRIPPER MACHINE OPERATOR NURSE FOR CONTINUITY OF CARE. PT IS AOX4, ABLE TO MAKE NEEDS KNOWN. RESPIRATIONS EVEN AND UNLABORED. ON ROOM AIR AND NO DISTRESS NOTED. SKIN IS WARM, DRY, AND INTACT. IV SITE ON LAC 20G INFUSING FLUIDS ORDERED. DENIES PAIN AT THE MOMENT. PLAN OF CARE DISCUSSED. SAFETY PRECAUTIONS IN PLACE. CALL LIGHT WITHIN REACH. WILL CONTINUE TO MONITOR.
[2022-03-30 08:07] LABS: T4 (THYROXINE) 8.1 ug/dL (4.5-12.0)
[2022-03-30] MEDS: PANTOPRAZOLE 40 MG TABEC PO SCH (08:34)
--- NOTE | 2022-03-30 08:45 | NUR ---
ALL SCHEDULED MEDS GIVEN. PT IS STABLE. NO DISTRESS NOTED. WILL CONTINUE TO MONITOR.
--- NOTE | 2022-03-30 10:44 | NUR ---
PATIENT HAS BEEN SCREENED AND CATEGORIZED MODERATE NUTRITION RISK. PATIENT WILL BE SEEN WITHIN 3-5 DAYS OF ADMISSION. ERNIE CROOKS RD
[2022-03-30] MEDS: DEXT 5% / NACL 0.45% 1,000 ML IV SCH ×3 (11:27→19:58)
[2022-03-30] MEDS: POTASSIUM CHLORIDE 40 MEQ, LIDOCAINE MPF 1% 25 MG in NACL 0.9% 250 ML IV PRN (11:27)
--- NOTE | 2022-03-30 11:35 | NUR ---
CHECKED ON PATIENT. PT IS STABLE. NO DISTRESS NOTED. WILL CONTINUE TO MONITOR.
[2022-03-30 12:00] VITALS: BP 133/67
--- NOTE | 2022-03-30 15:56 | NUR ---
CHECKED ON PATIENT. PT IS STABLE. NO DISTRESS NOTED. WILL CONTINUE TO MONITOR.
[2022-03-30 16:00] VITALS: BP 126/63
--- NOTE | 2022-03-30 19:27 | NUR ---
ENDORSED TO MANIFEST/ORDER ORGANIZER PRINT ORDERS NURSE FOR CONTINUITY OF CARE. PT IS STABLE.
--- NOTE | 2022-03-30 19:39 | NUR ---
GET THE REPORT FROM MORNING NURSE ANT, PATIENT IS LYING ON BED, PATIENT IS ALERT ORIENTED X4, ALL FALL PRECAUTION MEASURE ARE IN PLACE, CALL LIGHT IS WITHIN THE REACH, WILL CONTINUE TO MONITOR PATIENT.
[2022-03-30 20:00] VITALS: BP 140/68
--- NOTE | 2022-03-30 20:04 | NUR ---
PATIENT IS LYING ON BED, NO ANY COMPLAIN OF PAIN OR SHORTNESS OF BREATH AT THIS TIME, VITAL SIGN IS WITHIN THE NORMAL RANGE, ALL SCHEDULE MEDICATION IS GIVEN SA PER DOCTOR ORDER, CALL LIGHT IS WITHIN THE REACH, WILL CONTINUE TO MONITOR PATIENT.
[2022-03-31] VITALS: BP 142/62
--- NOTE | 2022-03-31 00:13 | NUR ---
PATIENT IS LYING ON BED, NO ANY COMPLAIN OF PAIN OR SHORTNESS OF BREATH AT THIS TIME, VITAL SIGN IS WITHIN NORMAL RANGE, ALL SCHEDULE MEDICATION IS GIVEN PER DOCTOR ORDER, CALL LIGHT IS WITHIN THE REACH, WILL CONTINUE TO MONITOR PATIENT.
[2022-03-31 04:00] VITALS: BP 114/71
[2022-03-31] MEDS: DEXT 5% / NACL 0.45% 1,000 ML IV SCH (04:22)
--- NOTE | 2022-03-31 07:12 | NUR ---
GAVE THE REPORT TO MORNING NURSE COSME FOR CONTINUOS OF CARE, PATIENT IS STABLE.
--- NOTE | 2022-03-31 07:13 | NUR ---
RECEIVED REPORT FROM AIRCRAFT STRESS ANALYST NURSE FOR CONTINUITY OF CARE. PT SLEEPING, EASILY AROUSABLE BY VERBAL STIMULI. RESPIRATIONS EVEN AND UNLABORED ON RA. NO DISTRESS NOTED. PT ON TELE MONITOR. SKIN IS INTACT AND WARM TO TOUCH. IV SITE AT LAC 18G INFUSING NS AT 100ML/HR. CALL LIGHT WITHIN REACH. SAFETY PRECAUTIONS IN PLACE. WILL CONTINUE TO MONITOR. Addendum: 03/31/22 at 0753 by Sunshine Marcelino LVN WITH CORRECTION
--- NOTE | 2022-03-31 07:13 | NUR ---
RECEIVED REPORT FROM TRUCK LOADER AND UNLOADER NURSE FOR CONTINUITY OF CARE. PT SLEEPING, EASILY AROUSABLE BY VERBAL STIMULI. RESPIRATIONS EVEN AND UNLABORED ON RA. NO DISTRESS NOTED. PT ON TELE MONITOR. SKIN IS INTACT AND WARM TO TOUCH. IV SITE AT LAC 18G INFUSING D5 1/2 NS AT 100ML/HR. CALL LIGHT WITHIN REACH. SAFETY PRECAUTIONS IN PLACE. WILL CONTINUE TO MONITOR.
[2022-03-31 07:18] LABS: BASOPHILS % (AUTO) 0.7 % (0.0-2.0); EOSINOPHILS # (AUTO) 0.2 K/uL (0-0.4); EOSINOPHILS % (AUTO) 2.8 % (0.0-4.0); HEMATOCRIT 29.6 % (36-48); HEMOGLOBIN 9.1 g/dL (12.0-16.0); LYMPHOCYTES # (AUTO) 1.8 K/uL (2.5-16.5); LYMPHOCYTES % (AUTO) 30.9 % (20.5-51.1); MEAN CORPUSCULAR HEMOGLOBIN 22 pg (27-31); MEAN CORPUSCULAR HGB CONC 31 g/dL (33-37); MEAN CORPUSCULAR VOLUME 71.2 fL (80-94); MONOCYTES # (AUTO) 0.5 K/uL (0.8-1.0); NEUTROPHILS # (AUTO) 3.3 K/uL (1.8-7.7); NEUTROPHILS % (AUTO) 57.6 % (42.2-75.2); PLATELET COUNT (AUTO) 201 K/uL (140-450); RED BLOOD CELL COUNT(AUTO) 4.15 MIL/uL (4.20-5.40); RED CELL DISTRIBUTION WIDTH 19.2 % (11.6-13.7); WHITE BLOOD COUNT (AUTO) 5.8 K/uL (4.8-10.8)
[2022-03-31 07:30] LABS: ANION GAP 11.1 (8-16); CARBON DIOXIDE 27.2 mmol/L (21-32); CREATININE 0.4 mg/dL (0.6-1.3); POTASSIUM 3.3 mmol/L (3.5-5.1)
--- NOTE | 2022-03-31 07:30 | NUR ---
Patient's Plan of Care was discussed and reviewed with RANDAL: COSME
[2022-03-31 08:00] VITALS: BP 130/70
[2022-03-31] MEDS: PANTOPRAZOLE 40 MG TABEC PO SCH (09:26)
--- NOTE | 2022-03-31 09:30 | NUR ---
ADMINISTERED SCHEDULED MORNING MEDS. PT TEACHING ABOUT MEDS GIVEN. PT VERBALIZED UNDERSTANDING. POTASSIUM IS 3.3. WILL INFORM RN.
[2022-03-31] MEDS: POTASSIUM CHLORIDE 40 MEQ, LIDOCAINE MPF 1% 25 MG in NACL 0.9% 250 ML IV PRN (11:01)
--- NOTE | 2022-03-31 11:08 | NUR ---
RECEIVED ORDER FROM MD TO START PT ON REGULAR DIET FOR LUNCH.
[2022-03-31 12:00] VITALS: BP 134/62
[2022-03-31] MEDS ORDERED: PANT40EC56 PO (12:07)
[2022-03-31 12:42] VITALS: BP 130/70
--- NOTE | 2022-03-31 12:45 | NUR ---
DID ROUNDS. PT DONE EATING LUNCH. PT ATE 100% OF HER LUNCH. NO COMPLAINTS OF ABDOMINAL PAIN. WILL CONTINUE TO MONITOR.
--- NOTE | 2022-03-31 14:05 | NUR ---
DC PLANNING: THE PATIENT ADMITTED FROM HOME WITH C/O RLQ PAIN AND NAUSEA X 1 DAY. H/O OF SBO AND HERNIA REPAIR, HTN. B/P IN ER 174/92, SURGERY CONSULT ORDERED. STARTED ON IVF'S, DILAUDID AND PROTONIX. CT ABD/PELVIS SHOWS POSSIBLE INCARCERATED SMALL BOWEL AND POSSIBLE PROXIMAL SMALL BOWEL ILEUS. SMALL BOWEL SERIES SHOWS POSSIBLE ILEUS VERSUS SMALL BOWEL OBSTRUCTION. CM SPOKE WITH THE PATIENT AND HER DAUGHTER AT BEDSIDE AND CONFIRMED HER ADDRESS AND PHONE NUMBER. THE PATIENT LIVES WITH HER SPOUSE AND 2 CHILDREN AND IS INDEPENDENT IN ALL ACTIVITIES. THE PATIENT STATES SHE HAS NOT FOLLOWED UP WITH AN MD OP. NO HOME HEALTH OR DME, PATIENT IS EXPECTED TO DC HOME TODAY. CM WILL FOLLOW.
--- NOTE | 2022-03-31 15:38 | NUR ---
PT STATED SHE WAS HAVING A HARD TIME DEFECATING AND A LITTLE BIT BLOATED. PT REQUESTED FOR STOOL SOFTENER. PRN MED ADMINISTERED. DISCHARGE PAPERS DISCUSSED WITH THE PT. PT REFUSED TO USE THE HOSPITAL'S CASING FINISHER AND STUFFER. PT CALLED HER NIECEDAISY AND INTERPRETS. PT VERBALIZED UNDERSTANDING OF HER DC PAPERS. PT DAISY MORALES WILL PICK-UP PT AND BE HERE IN 20 MINS. PT GETTING READY TO BE DISCHARGED.
--- NOTE | 2022-03-31 16:20 | NUR ---
PT DC HOME. PT WHEELED OUT BY THE NURSE TO THE FRONT LOBBY VIA WHEELCHAIR. REMOVED IV CATHETER INTACT. REMOVED TELE MONITOR. REMOVED ID WRIST BAND. ALL BELONGINGS TAKEN UPON DC. PT IS STABLE.
== END 2022-03-31 16:20 | disposition home or self-care (01) | DRG 254 ==
LOC: MED 03:20 → MTU 10:20
PROVIDERS: ADMIT Family Medicine; ATTEND Family Medicine
DX: K46.0 Unspecified abdominal hernia with obstruction, without gangrene (principal); D64.9 Anemia, unspecified; E78.5 Hyperlipidemia, unspecified; E11.9 Type 2 diabetes mellitus without complications; I10 Essential (primary) hypertension; Z20.822 Contact with and (suspected) exposure to COVID-19; Z88.8 Allergy status to other drugs, medicaments and biological substances; Z79.899 Other long term (current) drug therapy; Z90.49 Acquired absence of other specified parts of digestive tract; Z80.3 Family history of malignant neoplasm of breast
CPT/HCPCS: 36415; 71045; 74250; 80048; 80053; 81003; 82150; 83036; 83605; 83690; 83735; 83880; 84100; 84436; 84439; 84443; 84479; 84484; 84702; 85025; 85610; 85730; 87081; 93005; 96374; 96375; 96376; 99285; J1170; J2001; J2270; J2405; J3480; J7030; Q0092; Q9967